=== PATIENT | male | born 1940 | race Caucasian/White ===

== ENCOUNTER 2018-09-28 11:21 | Emergency (ER) | payer MEDICARE, SELFPAY ==
[2018-09-28] VITALS (50 sets, daily range): BP systolic 83–161; BP diastolic 58–84; PULSE 58–71; RESP 7–26; TEMP 36.6; O2SAT 87–97
--- NOTE | 2018-09-28 11:41 | DI.RAD_ITS ---
SYMPTOM/DIAGNOSIS: CP, LOW BP, R/O WIDENED MEDIASTINUM PORTABLE CHEST: Comparison is made with 16 November 2017. The exam is limited by suboptimal pulmonary inflation. There are increased patchy densities in both lower lobes suspicious for pneumonia. There is no evidence of a widened mediastinum or cardiomegaly. There is no evidence of effusion or pulmonary edema. IMPRESSION: Bibasilar densities suspicious for pneumonia.
--- NOTE | 2018-09-28 11:42 | DI.CT_ITS ---
SYMPTOM/DIAGNOSIS: LT SIDED CHEST PAIN, ? DISSECTION PE CHEST CT: Comparison is made with 05/15/09. The exam was performed according to the pulmonary embolism protocol. The pulmonary arteries and aorta are well opacified with IV contrast. There is no evidence of aortic dissection or pulmonary emboli. There are no pleural or pericardial effusions. Evaluation of the lungs is limited due to respiratory motion and suboptimal inflation. Dependent changes are noted at the bases. There are underlying emphysematous and fibrotic changes, greatest in the upper lobes. There are no pleural or pericardial effusions. The visualized portions of the liver and spleen as well as pancreas and adrenals are unremarkable. A stone is noted in the gallbladder. There is no biliary dilatation or gallbladder wall thickening. There is no evidence of pneumothorax, spine or rib fracture. IMPRESSION: No evidence of pulmonary emboli or aortic dissection. There are underling emphysematous and fibrotic changes. Dependent changes are seen in the posterior portions of the lungs. No definite infiltrates are identified.
[2018-09-28] MEDS: Normal Saline 250 ML IV (11:45)
[2018-09-28 11:53] LABS: Abs Immature Grans 0.03 k/cumm (0.0-0.09); Absolute Basophil Count 0.08 k/cumm (0.0-0.2); Absolute Eosinophil Count 0.28 k/cumm (0.0-0.7); Absolute Lymphocyte Count 1.76 k/cumm (1.2-3.4); Absolute Monocyte Count 0.54 k/cumm (0.11-0.7); Absolute Neutrophil Count 5.84 k/cumm (1.2-6.7); Basophils % 0.9; Eosinophils % 3.3; HGB 14.6 g/dL (13.5-17.5); Immature Grans % 0.4; Lymphocytes % 20.6; Mean Corp. HGB Concentration 33.2 g/dL (32.0-36.0); Mean Corpuscular Hemoglobin 29.3 pg (27.0-33.0); Mean Corpuscular Volume 88.4 fL (80-95); Mean Platelet Volume 10.7 fL (8.0-11.0); Monocytes % 6.3; Neutrophils % 68.5; Platelet Count 148 x1000/uL (130-400); RBC 4.98 m/cumm (4.50-6.00); RBC Distribution Width 13.8 % (11.8-14.1); White Blood Cell Count 8.53 k/cumm (4.4-10.8)
--- NOTE | 2018-09-28 12:00 | ED.GENADUL_ITS ---
Discharge Plan Disposition Patient Disposition: HOME Condition: Improving Discharge Details Chief Complaint: Chest Pain Clinical Impression: Chest wall pain, Chronic cough, Current smoker Primary Care Provider: Jessica,Local ED Provider: Tg Michelle Home Meds and New Rx's Prescriptions: New amoxicillin-pot clavulanate [Augmentin] 875-125 mg tablet 1 tab PO BID 7 Days Qty: 14 RF: 0 Continued gabapentin 300 MG capsule 300 mg PO BID RF: 0 nitroglycerin [Nitrostat] 0.4 MG tablet, sublingual 0.4 mg PO PRN PRNRF: 0 metoprolol tartrate 25 MG tablet 25 mg PO BID RF: 0 Combivent Respimat 120 PUFF mist 1 puff Inhalation Q4H PRNRF: 0 cilostazol 100 MG tablet 100 mg PO BID RF: 0 acetaminophen [Tylenol Extra Strength] 500 MG tablet 1,000 mg PO Q6H PRNRF: 0 guaifenesin 600 MG tablet extended release 12hr 600 mg PO BID RF: 0 prednisone 20 MG tablet 60 mg PO DAILY 4 Days RF: 0 levofloxacin 750 MG tablet 750 mg PO DAILY 6 Days RF: 0 furosemide 20 MG tablet 20 mg PO DAILY Qty: 7 RF: 0 buspirone 5 mg Tablet 5 mg PO TID RF: 0 lisinopril 20 mg Tablet 20 mg PO DAILY RF: 0 clonazepam 1 mg Tablet 1 mg PO HS RF: 0 aspirin 81 mg Tablet,Chewable 81 mg PO DAILY RF: 0 albuterol sulfate 90 mcg/actuation Hfa Aerosol Inhaler 2 puff Inhalation PRNRF: 0 budesonide-formoterol 160-4.5 mcg/actuation Hfa Aerosol Inhaler 2 puff INHALATION BID RF: 0 amlodipine 10 mg Tablet 10 mg PO DAILY RF: 0 ranitidine HCl 300 mg Capsule 300 mg PO BID RF: 0 tiotropium bromide 2.5 mcg/actuation Mist 2 puff INHALATION DAILY RF: 0 fluoxetine 20 mg Capsule 20 mg PO DAILY RF: 0 Discharge Instructions Instructions: Acute Cough (ED), Chest Wall Pain (ED) Additional Instructions: If your cough does not improve or worsens, you can start the antibiotic. You will receive a call from care management regarding a follow up appointment with a primary care doctor and for referral for a stress test if your symptoms do not improve or worsen. Return immediately to the emergency department if you develop any worsening or new concerning symptoms. Discharge Data Discharge Date/Time-TO BE ENTERED AT DEPARTURE: 09/28/18 15:57 Discharge Physician: Tg Michelle Medical Decision Making 78-year-old male with a history of WI, hypertension, hyperlipidemia, diabetes, CVA, COPD who presents with intermittent sharp left-sided chest pain without radiation currently 11/20. EKG on arrival notes a rate of 63, sinus no acute ST findings. Patient has significant left-sided tenderness to palpation that was significantly tender even with laying the stethoscope on his chest. Patient states he was carrying a building pressure washer yesterday which is approximately 80 pounds. Patient states he carried it again today and states the pain is been worse since then. Pain appears musculoskeletal but considering patient's age and history, will do a cardiac work-up as well as CT chest to rule out dissection. He denies any complaint of tearing chest pain so doubt dissection. He has no DVT/PE risk factors so doubt PE. 1400 --labs and imaging reviewed. Normal white blood cell count. Magnesium 1.7, will replete. Troponin negative. BNP 231. Chest x-ray notes bilateral pneumonia. CTA chest negative for acute findings. In the setting of normal white blood cell count, no fever, and no pneumonia noted on CT chest, will discuss with patient whether he would like treatment for pneumonia but patient has a chronic cough due to his COPD and this likely is not an acute infectious process. Patient is requesting to go home. He is agreeable to stay for second troponin which we will obtain now. Patient informed of work-up and that this does not appear consistent with pneumonia at this time. He states he is prone to pneumonia so we will send home with a prescription for antibiotics if his cough does not improve or worsens. 1540 --second troponin negative. Repeat EKG notes a rate of 62, sinus and no acute ST findings. Patient is requesting to go home. Patient denies any pain at this time. Pt offered admission but declines. Will place patient on care management list to arrange for follow-up appointment with the primary care doctor. Discussed with patient that he should follow-up with his primary care doctor regarding referral for an outpatient stress test if his symptoms do not improve or worsen. Patient instructed to return immediately to the emergency department if he develops any worsening or new concerning symptoms. Medical Records Medical records reviewed: Yes I reviewed the patient's medical records. Imaging Data Radiologic Study: Radiologist's impression: PORTABLE CHEST: Comparison is made with 16 November 2017. The exam is limited by suboptimal pulmonary inflation. There are increased patchy densities in both lower lobes suspicious for pneumonia. There is no evidence of a widened mediastinum or cardiomegaly. There is no evidence of effusion or pulmonary edema. IMPRESSION: Bibasilar densities suspicious for pneumonia. ECG Data Attestation: I personally reviewed and interpreted this ECG (s) as follows: Interpretation: #1 -- Rate of 63, sinus, no acute ST elevation or depression. QTc 411. QRS 90. #2 -- Rate of 62, sinus, no acute ST elevation or depression. QTc 422. QRS 92. HPI General Mode of arrival: ambulatory . Date/Time Provider Initiated Documentation: 09/28/18 11:40 . Limitations to Documentation: no limitations . Information obtained by: patient . HPI Narrative: Patient is a 78-year-old male with history of CVA, WI, COPD, hypertension, high cholesterol diabetes who presents with left-sided chest pain that started at 5 AM this morning while laying in bed. States the pain is been intermittent, sharp, worse with movement. States he took 2 nitro and had some relief. Patient also admits to some nausea but denies any vomiting. Patient states he has chronic shortness of breath due to his COPD and admits to some shortness of breath this morning. He denies any radiation of pain. He denies any recent surgery, recent travel, leg pain or swelling. Patient states he is from [place] and moved here recently and does not have a physician. Patient states he is unsure of his medications. Patient states his dropped him off here and then drove downtown. Patient also admits to a cough with yellow sputum. Related Data Home Medications Medication Instructions Recorded Confirmed Combivent Respimat 1 puff INHALATION Q4H PRN 08/13/15 09/28/18 acetaminophen [Tylenol Extra 1,000 mg PO Q6H PRN 08/13/15 09/28/18 Strength] cilostazol 100 mg PO BID 08/13/15 09/16/17 gabapentin 300 mg PO BID 08/13/15 09/28/18 metoprolol tartrate 25 mg PO BID 08/13/15 09/28/18 nitroglycerin [Nitrostat] 0.4 mg PO PRN PRN 08/13/15 09/28/18 furosemide 20 mg PO DAILY #7 tab 09/16/17 09/28/18 guaifenesin 600 mg PO BID 09/16/17 09/16/17 levofloxacin 750 mg PO DAILY 6 Days tablet 09/16/17 09/28/18 prednisone 60 mg PO DAILY 4 Days tab 09/16/17 albuterol sulfate 2 puff INHALATION PRN 09/28/18 amlodipine 10 mg PO DAILY 09/28/18 09/28/18 amoxicillin-pot clavulanate 1 tab PO BID 7 Days #14 tab 09/28/18 [Augmentin] aspirin 81 mg PO DAILY 09/28/18 09/28/18 budesonide-formoterol 2 puff INHALATION BID 09/28/18 09/28/18 buspirone 5 mg PO TID 09/28/18 09/28/18 clonazepam 1 mg PO HS 09/28/18 09/28/18 fluoxetine 20 mg PO DAILY 09/28/18 09/28/18 lisinopril 20 mg PO DAILY 09/28/18 09/28/18 ranitidine HCl 300 mg PO BID 09/28/18 09/28/18 tiotropium bromide 2 puff INHALATION DAILY 09/28/18 09/28/18 Previous Rx's Medication Instructions Recorded furosemide 20 mg PO DAILY #7 tab 09/16/17 levofloxacin 750 mg PO DAILY 6 Days tablet 09/16/17 prednisone 60 mg PO DAILY 4 Days tab 09/16/17 amoxicillin-pot clavulanate 1 tab PO BID 7 Days #14 tab 09/28/18 [Augmentin] Allergies Allergy/AdvReac Type Severity Reaction Status Date / Time lansoprazole [From Prevacid] Allergy Unverified 09/16/17 05:11 metoprolol Allergy Unverified 09/16/17 05:12 omeprazole Allergy Unverified 09/16/17 05:12 trazodone Allergy Unverified 09/16/17 05:12 zolpidem Allergy Unverified 09/16/17 05:12 General Stated Complaint: Chest Pain STEFANI: 2 Review of Systems Review of Systems All systems reviewed & are unremarkable except as noted in HPI and below Constitutional Reports as per HPI, Denies chills and Denies fever(s) Eyes Denies blurry vision ENT Denies dizziness, Denies sore throat and Denies throat swelling Cardiovascular Denies chest pain and Denies dyspnea Respiratory Denies cough and Denies dyspnea Gastrointestinal Denies abdominal pain, Denies diarrhea and Denies vomiting Genitourinary Denies hematuria and Denies dysuria Musculoskeletal Denies back pain and Denies numbness Integumentary/Breasts Denies lesions and Denies rash Neurologic Denies dizziness, Denies focal weakness and Denies numbness Allergic/Immunologic Denies throat swelling PFSH Medical History Hx of hyperlipidemia (Acute) Asthma (Chronic) COPD (chronic obstructive pulmonary disease) (Chronic) CVA (cerebral vascular accident) (Chronic) HTN (hypertension) (Chronic) Myocardial infarction (Chronic) Surgical History Finger amputation, traumatic (Acute) History of knee replacement (Chronic) Social History Smoking/Tobacco Use Status: Current every day Tobacco Type: cigarettes Alcohol Intake: former Drug use: Never Substance use type: does not use Do you feel safe at home: Yes Do you feel safe in your relationship?: Yes Exam Const General: cooperative, healthy appearing and no acute distress HENMT Head: normal to inspection Face and sinus: normal facial exam Eyes General: appearance normal, both eyes and all related structures EOM: EOM intact bilaterally Neck Neck: normal visual inspection and No submandibular swelling Lymphatic: no lymphadenopathy noted Chest Chest: normal inspection of the chest and tenderness (significant L anterior chest) Resp Effort & Inspection: normal respiratory effort and able to speak in complete sentences Auscultation: clear to auscultation bilaterally Cardio Rate: regular rate Rhythm: regular rhythm GI Inspection: normal to inspection Palpation: soft, not firm, not rigid and nontender Auscultation: normal bowel sounds Skin General skin exam: no rashes or lesions noted Neuro General: alert, awake and oriented x3 Cognition: normal cognition Speech: speech normal Motor: muscle tone normal throughout Sensory Exam: no sensory deficits noted Extrem General: normal to inspection, full ROM, normal capillary refill, no calf tenderness bilaterally and no edema Psych Appearance: grossly normal Mental Status: mental status grossly normal Speech and Movement: speech and movement normal Affect: normal affect Course Vital Signs Temperature 97.9 F 09/28/18 11:26 Pulse 69 09/28/18 11:26 Respiratory Rate 20 09/28/18 11:26 Blood Pressure 143/74 H 09/28/18 11:26 Pulse Oximetry 94 L 09/28/18 11:26 Temperature 97.9 F 09/28/18 11:26 Temperature Source Temporal Artery Scan 09/28/18 11:26 Pulse 69 09/28/18 11:26 Respiratory Rate 18 09/28/18 11:47 Respiratory Effort Non-Labored 09/28/18 11:47 Respiratory Depth Normal 09/28/18 11:47 Respiratory Pattern Normal 09/28/18 11:47 Blood Pressure 95/61 L 09/28/18 11:42 Blood Pressure Position Sitting 09/28/18 11:26 Pulse Oximetry 94 L 09/28/18 11:26 Oxygen Delivery Method Room Air 09/28/18 11:26 Oxygen Flow Rate 0 09/28/18 11:26 Pain Level 6 09/28/18 11:42
[2018-09-28 12:11] LABS: ALT 26 U/L (12-78); AST 17 U/L (15-37); Albumin 3.9 g/dL (3.4-5.0); Alkaline Phosphatase 65 U/L (46-116); Anion Gap 12.8 mmol/L (3-11); BUN 18 mg/dL (7-18); Bilirubin, Total 0.8 mg/dL (0.2-1.0); CO2 25.2 mmol/L (21.0-32.0); CREATININE 1.61 mg/dL (0.70-1.30); Calcium 9.1 mg/dL (8.5-10.1); Chloride 101 mmol/L (98-107); Estimated GFR 41.61 (mL/min/1.73m2); Glucose 140 mg/dL (70-100); Potassium 4.4 mmol/L (3.5-5.1); Sodium 139 mmol/L (136-145)
[2018-09-28 12:12] LABS: Troponin I < 0.02 ng/mL (0.00-0.06)
[2018-09-28 12:17] LABS: Magnesium 1.7 mg/dL (1.8-2.4); NT-proBNP 231 pg/mL
[2018-09-28] MEDS: Omnipaque 350 MG/ML 100 ML BTL IJ (12:41)
[2018-09-28] MEDS: MAGNESIUM SULFATE 1 GM/100 ML BAG IVPB (14:01)
[2018-09-28 15:04] LABS: Troponin I < 0.02 ng/mL (0.00-0.06)
== END 2018-09-28 15:57 | disposition home or self-care (01) ==
PROVIDERS: Emergency Provider Physician Assistant
DX: R07.89 Other chest pain (principal); R05 Cough; I10 Essential (primary) hypertension; J44.9 Chronic obstructive pulmonary disease, unspecified; F17.210 Nicotine dependence, cigarettes, uncomplicated; Z86.73 Personal history of transient ischemic attack (TIA), and cerebral infarction without residual deficits
CPT/HCPCS: 36415; 71275; 80053; 93005; 96365; 96366; 99285; 71045; 83735; 83880; 84484; 85025; 93010; J3475; J3490

== ENCOUNTER → 2020-04-27 04:45 | Outpatient (CLI) | payer MEDICARE, SELFPAY ==
--- NOTE | 2020-04-27 07:30 | DI.RAD_ITS ---
EXAM: XR HIP PELVIS ADULT BL CLINICAL HISTORY: osteoarthritis, bilateral hip pain,m19.90. TECHNIQUE: 2D digital imaging was performed. COMPARISON: No exams were available for comparison FINDINGS: Chronic advanced degenerative disc disease noted lower visualized lumbar spine. Is no evidence of hip fracture or pelvic fracture. Both hips appear unremarkable. Sacroiliac joints unremarkable. IMPRESSION: No significant radiograph findings in the hips. Chronic degenerative disc disease. DATA REPOSITORY: RADIATION DOSE DELIVERED:
== END ==
PROVIDERS: PCP Nurse Practitioner Family; Visit Provider Nurse Practitioner Family
DX: M25.552 Pain in left hip (principal); M25.551 Pain in right hip; M47.816 Spondylosis without myelopathy or radiculopathy, lumbar region
CPT/HCPCS: 73521

== ENCOUNTER 2020-05-25 10:39 | Outpatient (CLI) | payer MEDICARE, SELFPAY ==
--- NOTE | 2020-05-25 10:30 | RT.EKG_ITS ---
APPROVED REPORT Exam: Resting ECG Patient Location: O HR:62 bpm ECG Measurements Heart Rate 62 AXIS GA 185 P 48 QRSd 77 QRS -32 QT 399 T 51 QTc 405 Conclusion Sinus rhythm...normal P axis, V-rate 60- 99 Left axis deviation...QRS axis (-30,-90)
[2020-05-25 13:35] LABS: ALT 32 U/L (16-63); AST 23 U/L (15-37); Albumin 4.2 g/dL (3.4-5.0); Alkaline Phosphatase 72 U/L (46-116); BUN 19 mg/dL (7-18); Bilirubin, Total 0.8 mg/dL (0.2-1.0); CREATININE 1.7 mg/dL (0.70-1.30); Calcium 8.8 mg/dL (8.5-10.1); Chloride 101 mmol/L (98-107); Cholesterol 192 mg/dL (<200); Estimated GFR 38.97 (mL/min/1.73m2); Glucose 109 mg/dL (74-106); HDL Cholesterol 26 mg/dL (40-60); Potassium 4.5 mmol/L (3.5-5.1); Sodium 139 mmol/L (136-145); Triglyceride 482 mg/dL (<150)
[2020-05-25 13:41] LABS: Hemoglobin A1C 7.7 % (<5.7)
[2020-05-25 14:05] LABS: LDL CHOLESTEROL 114 mg/dL (<100)
== END 2020-05-25 10:40 | disposition home or self-care (01) ==
LOC: DI.CM 10:40
PROVIDERS: PCP Nurse Practitioner Family; Visit Provider Nurse Practitioner Family
DX: R07.9 Chest pain, unspecified (principal); I25.10 Atherosclerotic heart disease of native coronary artery without angina pectoris; R73.01 Impaired fasting glucose
CPT/HCPCS: 80053; 80061; 83721; 83036

== ENCOUNTER 2020-06-07 01:05 | Outpatient (CLI) | payer MEDICARE, SELFPAY ==
--- NOTE | 2020-06-07 07:00 | DI.NM_ITS ---
APPROVED REPORT Exam: Pharmacologic Patient Location: Out-Patient Room/Bed: Stress Nurse: Stefania Escoto RN Ordering Provider:SON ROEREBECCA, Contact Number: [phone] BMI: 27.82 Baseline Rhythm: Sinus Bradycardia Indications: Known CAD. Medical History Medical History: Abdominal aortic aneurysm, CKD, multiple MIs, exertional angina, Depression, Anxiety , AFIB, COPD, Tobacco use, GERD, PAD, CVD, HTN, HLD, Osteoartritis, CVA, DJD, DM II, Diabetic neuropa thy. Cardiac Medications: Amlodipine, Aspirin, Lisinopril, Atorvastatin, Nitro, Metoprolol tartrate, Fluti robert fur., Albuterol sulfate, Tiotropium bromide, Combivent respimat. Allergies: Zolpidem, Trazadone, Omeprazole, Lansoprazole Cardiac Risk Factors: FHX of CAD, HTN, Hyperlipidemia, DM, Smoking (current), Asthma Previous Cardiac Procedures: PCI in 2008 Pretest Chest Pain Characteristics: None Exercise History: Sedentary Physical Disabilities: Hips, Legs Lung Sounds: Clear to auscultation Heart Sounds: Regular Stress Test Details Test: Exercise stress converted to pharmacologic stress due to failure to obtain a diagnostic stress test. Reason for pharmacologic stress test: physical limitation. Nuclear Acquisition: Rest Tc-99m/Stress Tc-99m 1 day Rest Isotope: Tc-99m Sestamibi. Dose: 10.5 Date: 06/07/2020 Injection Time: 0905 Stress Isotope: Tc-99m Sestamibi. Dose: 32.8 Date: 06/07/2020 Injection Time: 1045 HR Resting HR Supine: 54 bpm Max Heart Rate (APMHR): 140 bpm Resting HR Standin bpm Target HR (85% APMHR): 119 bpm Max HR Achieved: 73 bpm % of APMHR: 52 Recovery HR: 66 bpm BP Resting BP Supine: 134/76 mmHg Resting BP Standin/68 mmHg Max BP: 140/70 mmHg Recovery BP: 130/72 mmHg ECG Resting ECG: Sinus Bradycardia Ectopy: None. Stress ECG: Sinus Rhythm ST Change: No significant ST segment changes noted Arrhythmia: None. Recovery ECG: Sinus Rhythm Recovery ST Change: No significant ST segment changes noted Recovery Arrhythmia: None Clinical Reason for Termination: Dyspnea, pain w/ ambulation Stress Symptoms: Dyspnea, Leg Fatigue Exercise duration: 1 min35 sec Highest Stage Reached: Stage 1: 1.7 mph at 10% grade. Exercise capacity: 3.66 METs Rate Pressure Product: [id number] Stress ECG Conclusion 1. Resting electrocardiogram showed left anterior fascicular block. 2. Patient exercised briefly on the treadmill, workload 3.66 METS. Symptoms included leg fatigue and shortness of breath. Peak heart rate was 52% of predicted for age and the patient additionally had pharmacologic stress with regadenoson. Electrocardiographically the test was nondiagnostic due to in adequate heart rate Stress Test Summary STAGE Time (mins) Speed (mph) Grade (%) HR BP SYMPTOMS METS Supine 54 134/76 Standing 61 130/68 1 min post Lexiscan injection 68 140/70 SOB 3 min post Lexiscan injection 69 138/70 Symptoms resolved 6 min post Lexiscan injection 66 130/72 MPI Conclusion No significant myocardial ischemia Calculated ejection fraction 58%
[2020-06-07] MEDS: Regadenoson 0.4 MG/5 ML SYR IVP (10:52)
== END 2020-06-07 01:06 ==
LOC: DI 01:06
PROVIDERS: PCP Nurse Practitioner Family; Visit Provider Nurse Practitioner Family
DX: I25.10 Atherosclerotic heart disease of native coronary artery without angina pectoris (principal); I71.4 Abdominal aortic aneurysm, without rupture; I48.91 Unspecified atrial fibrillation; E11.9 Type 2 diabetes mellitus without complications; I10 Essential (primary) hypertension; E78.5 Hyperlipidemia, unspecified; I25.2 Old myocardial infarction; K21.9 Gastro-esophageal reflux disease without esophagitis
CPT/HCPCS: 78452; 93016; 93018; 93017; J2785

== ENCOUNTER → 2020-06-08 10:27 | Outpatient (BNVA) | payer MEDICARE, SELFPAY | PROVIDERS: PCP Nurse Practitioner Family; Referring Provider Nurse Practitioner Family; Visit Provider Internal Medicine Cardiovascular Disease | DX: I25.10 Atherosclerotic heart disease of native coronary artery without angina pectoris (principal); J44.9 Chronic obstructive pulmonary disease, unspecified; I73.9 Peripheral vascular disease, unspecified; I10 Essential (primary) hypertension; F17.210 Nicotine dependence, cigarettes, uncomplicated | CPT/HCPCS: 99203; 99215 ==

== ENCOUNTER 2020-11-10 08:08 | Emergency (ER) | payer MEDICARE, SELFPAY ==
[2020-11-10 08:20] VITALS: BP 147/67; PULSE 60; RESP 18; TEMP 36.6; O2SAT 95
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
--- NOTE | 2020-11-10 08:45 | DI.RAD_ITS ---
Exam(s) XR CHEST 2V PA LATERAL EXAM: XR CHEST 2V PA LATERAL CLINICAL HISTORY: cough, chronic SOB, r/o acute disease TECHNIQUE: COMPARISON: CR XR PORTABLE CHEST AP from 09/28/2018 FINDINGS: The heart is not enlarged. Upper lung zones are predominantly clear. There are streaky and patchy r adiodensities overlying the lower lung zones bilaterally, right greater than left. Comparison with p rior radiograph of September 28, 2018 shows question of new infiltrates. No pleural effusion seen. No pn eumothorax. IMPRESSION: Question acute on chronic pulmonary radiodensities as described above. Possibility of acute pneumoni tis is not excluded. Follow-up chest radiograph requested and if the findings do not resolve additio nal evaluation with chest CT would be recommended. RADIATION DOSE DELIVERED: Total DLP
[2020-11-10 09:00] LABS: Abs Immature Grans 0.03 10^3/uL (0.0-0.06); Absolute Eosinophil Count 0.43 10^3/uL (0.0-0.7); Absolute Lymphocyte Count 2.31 10^3/uL (1.2-3.4); Absolute Monocyte Count 0.82 10^3/uL (0.1-0.8); Absolute Neutrophil Count 6.86 10^3/uL (1.2-6.7); Basophils % 0.9; Eosinophils % 4.1; HCT 40.1 % (40.0-50.0); HGB 12.9 g/dL (13.5-17.5); Immature Grans % 0.3; Lymphocytes % 21.9; MCH 29.5 pg (27.0-33.0); MCHC 32.2 % (32.0-36.0); MCV 91.8 fL (80-95); MPV 10.7 fL (8.0-11.0); Monocytes % 7.8; Nucleated RBC 0 %; Platelet Count 140 10^3/uL (130-400); RBC 4.37 10^6/uL (4.36-5.78); RDW-SD 43.8 fL; WBC 10.55 10^3/uL (4.4-10.8)
[2020-11-10 09:20] LABS: ALT 19 U/L (16-63); AST 18 U/L (15-37); Albumin 3.8 g/dL (3.4-5.0); Alkaline Phosphatase 62 U/L (46-116); Anion Gap 11.3 mmol/L (3-11); BUN 33 mg/dL (7-18); Bilirubin, Total 0.7 mg/dL (0.2-1.0); CO2 23.7 mmol/L (21.0-32.0); CREATININE 2.4 mg/dL (0.70-1.30); Calcium 8.8 mg/dL (8.5-10.1); Chloride 104 mmol/L (98-107); Estimated GFR 26.11 (mL/min/1.73m2); Glucose 108 mg/dL (74-106); Magnesium 1.8 mg/dL (1.8-2.4); Potassium 4.7 mmol/L (3.5-5.1); Sodium 139 mmol/L (136-145); Total Protein 7.7 g/dL (6.4-8.2)
[2020-11-10 09:21] LABS: Troponin I < 0.05 ng/mL (<0.06)
[2020-11-10 09:22] LABS: NT-proBNP 202 pg/mL (<300)
--- NOTE | 2020-11-10 09:30 | NUR.NOTE ---
returned from xray, no cough noted, resp even and unlabored
[2020-11-10 10:06] VITALS: BP 122/57; PULSE 58; RESP 15; O2SAT 92
--- NOTE | 2020-11-10 10:42 | NUR.NOTE ---
ambulated with assist to BR and back to bed, unsteady gait:
--- NOTE | 2020-11-10 11:13 | DI.VRAD_ITS ---
PROCEDURE INFORMATION: Exam: XR Chest Exam date and time: 11/10/2020 8:48 AM Age: 80 years old Clinical indication: Other: Cough, chronic SOB, R/O acute disease TECHNIQUE: Imaging protocol: XR of the chest. Views: 2 views. COMPARISON: CR XR PORTABLE CHEST AP 09/28/2018 11:47 AM FINDINGS: Lungs: Lung conrad are hyperinflated, compatible with underlying emphysematous disease. Pleural spaces: No pleural effusion. No large pleural effusion. Heart/Mediastinum: Unremarkable. No cardiomegaly. Bones/joints: Unremarkable. Other findings: Mild multifocal patchy opacities present, uncertain whether these are acute or chronic. IMPRESSION: Chronic lung disease. Possible acute on chronic disease. Dictated and Authenticated by: Digna Mantilla MD. Ordering:BETTIE Mas MD
[2020-11-10 11:33] VITALS: BP 112/53; PULSE 64; RESP 16; O2SAT 94
[2020-11-10] MEDS: Amoxicillin 875/Clav. 125 TAB PO (11:33)
== END 2020-11-10 11:38 | disposition home or self-care (01) ==
PROVIDERS: Emergency Provider Physician Assistant; PCP Nurse Practitioner Family
DX: J44.0 Chronic obstructive pulmonary disease with (acute) lower respiratory infection (principal); J18.8 Other pneumonia, unspecified organism; J44.9 Chronic obstructive pulmonary disease, unspecified; R06.02 Shortness of breath; R05 Cough; F17.210 Nicotine dependence, cigarettes, uncomplicated
CPT/HCPCS: 36415; 80053; 99284; 71046; 83735; 83880; 84484; 85025; 99285

== ENCOUNTER → 2021-05-30 13:42 | Outpatient (BNVA) | payer OTHER, SELFPAY | PROVIDERS: PCP Nurse Practitioner Family; Referring Provider Nurse Practitioner Family; Visit Provider Internal Medicine Cardiovascular Disease | DX: I25.10 Atherosclerotic heart disease of native coronary artery without angina pectoris (principal); R07.9 Chest pain, unspecified; J44.9 Chronic obstructive pulmonary disease, unspecified; I73.9 Peripheral vascular disease, unspecified; I10 Essential (primary) hypertension | CPT/HCPCS: 99214; 99213 ==

== ENCOUNTER 2021-12-18 12:21 | Outpatient (REF) | payer OTHER, SELFPAY ==
[2021-12-18 22:39] LABS: Anion Gap 9.7 mmol/L (3-11); BUN 27 mg/dL (7-18); CO2 26.3 mmol/L (21.0-32.0); CREATININE 1.9 mg/dL (0.70-1.30); Calcium 8.3 mg/dL (8.5-10.1); Calculated LDL 41 mg/dL (<100); Chloride 102 mmol/L (98-107); Cholesterol 97 mg/dL (<200); Estimated GFR 34.79 (mL/min/1.73m2); Glucose 226 mg/dL (74-106); HDL Cholesterol 30 mg/dL (40-60); Sodium 138 mmol/L (136-145); Triglyceride 131 mg/dL (<150)
[2021-12-18 22:40] LABS: Hemoglobin A1C 7.4 % (<5.7)
== END 2021-12-18 12:22 | disposition home or self-care (01) ==
LOC: LBN 12:21
PROVIDERS: PCP Nurse Practitioner Family; Visit Provider Nurse Practitioner Family
DX: E11.9 Type 2 diabetes mellitus without complications (principal); I25.10 Atherosclerotic heart disease of native coronary artery without angina pectoris
CPT/HCPCS: 80048; 80061; 83036

== ENCOUNTER 2022-01-05 14:07 | Emergency (ER) | payer OTHER, SELFPAY ==
[2022-01-05 14:12] VITALS: BP 123/76; PULSE 82; RESP 18; TEMP 37; O2SAT 98
[2022-01-05 14:27] VITALS: BP 123/76; PULSE 79; RESP 17
[2022-01-05 14:28] VITALS: PULSE 78; RESP 18; O2SAT 95
[2022-01-05 14:30] VITALS: PULSE 75; RESP 29; O2SAT 96
--- NOTE | 2022-01-05 14:30 | DI.RAD_ITS ---
Exam(s) XR PORTABLE CHEST AP EXAM: XR PORTABLE CHEST AP CLINICAL HISTORY: shortness of breath TECHNIQUE: COMPARISON: CR,XR XR CHEST 2V PA LATERAL from 11/10/2020 FINDINGS: Portable AP chest at 1500 hours. Heart is not enlarged. There are changes of apparent pulmonary sca rring/fibrosis, unchanged from prior examination of 11/10/2020. No acute consolidation. No pleural effusion on this frontal film. IMPRESSION: No evidence of acute process. RADIATION DOSE DELIVERED: Total DLP
[2022-01-05 14:31] VITALS: BP 95/52; PULSE 74; RESP 28; O2SAT 96
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
[2022-01-05 15:19] LABS: Lactate 2.7 mmol/L (0.6-1.4)
[2022-01-05] MEDS: methylPREDNISolone SUCC 125 MG VIAL 80 MG IVP (15:20)
[2022-01-05] MEDS: Normal Saline 500 ML 1000 ML IV (15:42)
[2022-01-05 15:44] LABS: ALT 22 U/L (16-63); AST 17 U/L (15-37); Albumin 3.9 g/dL (3.4-5.0); Alkaline Phosphatase 62 U/L (46-116); Anion Gap 7.6 mmol/L (3-11); BUN 10 mg/dL (7-18); Bilirubin, Total 0.5 mg/dL (0.2-1.0); CO2 30.4 mmol/L (21.0-32.0); CREATININE 1.2 mg/dL (0.70-1.30); Calcium 9.3 mg/dL (8.5-10.1); Chloride 103 mmol/L (98-107); Estimated GFR 60.38 (mL/min/1.73m2); Glucose 67 mg/dL (74-106); Potassium 3.8 mmol/L (3.5-5.1); Sodium 141 mmol/L (136-145); Total Protein 6.9 g/dL (6.4-8.2)
[2022-01-05] MEDS: Doxycycline Hyclate 100 MG CAP (16:04)
[2022-01-05 16:58] LABS: Abs Immature Grans 0.03 10^3/uL (0.0-0.06); Absolute Basophil Count 0.07 10^3/uL (0.0-0.2); Absolute Eosinophil Count 0.08 10^3/uL (0.0-0.7); Absolute Lymphocyte Count 1.02 10^3/uL (1.2-3.4); Absolute Monocyte Count 0.74 10^3/uL (0.1-0.8); Absolute Neutrophil Count 3.79 10^3/uL (1.2-6.7); Basophils % 1.2; Eosinophils % 1.4; HCT 39.9 % (40.0-50.0); HGB 13.3 g/dL (13.5-17.5); Immature Grans % 0.5; Lymphocytes % 17.8; MCH 29.4 pg (27.0-33.0); MCHC 33.3 % (32.0-36.0); MCV 88 fL (80-95); MPV 11.2 fL (8.0-11.0); Monocytes % 12.9; Neutrophils % 66.2; RBC 4.53 10^6/uL (4.36-5.78); RDW 13.2 % (11.8-14.1); RDW-SD 42.7 fL; WBC 5.73 10^3/uL (4.4-10.8)
[2022-01-05 17:00] LABS: Platelet Count 97 10^3/uL (130-400)
[2022-01-05 17:13] LABS: NT-proBNP 566 pg/mL (<300); Troponin I < 50 ng/L (<or=60)
== END 2022-01-05 16:13 | disposition left against medical advice (07) ==
PROVIDERS: Emergency Provider Physician Assistant; PCP Nurse Practitioner Family
DX: J18.9 Pneumonia, unspecified organism (principal); R06.82 Tachypnea, not elsewhere classified; I25.10 Atherosclerotic heart disease of native coronary artery without angina pectoris; E11.22 Type 2 diabetes mellitus with diabetic chronic kidney disease; N18.9 Chronic kidney disease, unspecified; J44.9 Chronic obstructive pulmonary disease, unspecified; F17.210 Nicotine dependence, cigarettes, uncomplicated; Z79.82 Long term (current) use of aspirin; Z79.51 Long term (current) use of inhaled steroids
CPT/HCPCS: 36415; 80053; 87040; 87637; 96374; 99284; 71045; 83605; 83880; 84484; 85025; J2930

== ENCOUNTER 2022-01-16 13:19 | Emergency (ER) | payer OTHER, SELFPAY ==
[2022-01-16] VITALS (44 sets, daily range): BP systolic 96–135; BP diastolic 41–60; PULSE 63–88; RESP 10–29; TEMP 36.4–36.7; O2SAT 88–98
--- NOTE | 2022-01-16 13:15 | RT.EKG_ITS ---
APPROVED REPORT Exam: Resting ECG Reason for Exam: dyspnea Patient Location: E HR:68 bpm ECG Measurements Heart Rate 68 AXIS RI 160 P -8 QRSd 81 QRS 3 QT 403 T 60 QTc 428 Conclusion Sinus rhythm...normal P axis, V-rate 60- 99
--- NOTE | 2022-01-16 13:30 | DI.RAD_ITS ---
Exam(s) XR PORTABLE CHEST AP EXAM: XR PORTABLE CHEST AP CLINICAL HISTORY: sob, cough TECHNIQUE: COMPARISON: CR XR PORTABLE CHEST AP from 01/05/2022 FINDINGS: Heart is not enlarged. Note is again made of changes of pulmonary fibrosis/scarring, no gross interv al change appearance comparison with prior examination of January 05. No gross pleural effusion on this frontal film. IMPRESSION: No evidence of acute change. RADIATION DOSE DELIVERED: Total DLP
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
[2022-01-16 14:22] LABS: Lactate 1.4 mmol/L (0.6-1.4)
[2022-01-16 14:26] LABS: Abs Immature Grans 0.11 10^3/uL (0.0-0.06); Absolute Basophil Count 0.04 10^3/uL (0.0-0.2); Absolute Eosinophil Count 0.15 10^3/uL (0.0-0.7); Absolute Lymphocyte Count 1.64 10^3/uL (1.2-3.4); Absolute Monocyte Count 0.92 10^3/uL (0.1-0.8); Basophils % 0.4; Eosinophils % 1.4; HGB 13.1 g/dL (13.5-17.5); Lymphocytes % 15.2; MCH 28.9 pg (27.0-33.0); MCHC 32.8 % (32.0-36.0); MCV 88 fL (80-95); MPV 10.9 fL (8.0-11.0); Monocytes % 8.5; Neutrophils % 73.5; Platelet Count 180 10^3/uL (130-400); RBC 4.54 10^6/uL (4.36-5.78); RDW 12.9 % (11.8-14.1); RDW-SD 41.7 fL; WBC 10.82 10^3/uL (4.4-10.8)
[2022-01-16] MEDS: methylPREDNISolone SUCC 125 MG VIAL IVP (14:26)
[2022-01-16] MEDS: Normal Saline Flush 10 ML SYR IVP (14:26)
[2022-01-16 14:30] LABS: Influenza A PCR Negative (Negative); Influenza B PCR Negative (Negative); RSV PCR Negative (Negative)
[2022-01-16 14:32] LABS: COVID-19 PCR Positive (Negative)
[2022-01-16 14:32] LABS: Absolute Neutrophil Count 7.95 10^3/uL (1.2-6.7)
[2022-01-16] MEDS: Albuterol/Ipratropium 3 ML UPD VIAL UPD (14:34)
[2022-01-16 14:48] LABS: ALT 18 U/L (16-63); AST 10 U/L (15-37); Albumin 3.5 g/dL (3.4-5.0); Alkaline Phosphatase 61 U/L (46-116); Anion Gap 9.2 mmol/L (3-11); BUN 35 mg/dL (7-18); Bilirubin, Total 1.4 mg/dL (0.2-1.0); CO2 26.8 mmol/L (21.0-32.0); CREATININE 2.3 mg/dL (0.70-1.30); Calcium 8.9 mg/dL (8.5-10.1); Chloride 100 mmol/L (98-107); Estimated GFR 27.66 (mL/min/1.73m2); Glucose 128 mg/dL (74-106); Magnesium 1.7 mg/dL (1.8-2.4); NT-proBNP 225 pg/mL (<300); Potassium 4.4 mmol/L (3.5-5.1); Sodium 136 mmol/L (136-145); Total Protein 7.7 g/dL (6.4-8.2); Troponin I < 50 ng/L (<or=60)
[2022-01-16 15:34] LABS: Procalcitonin < 0.1 ng/mL
--- NOTE | 2022-01-16 15:46 | NUR.NOTE ---
pt provided with meal tray Nursing Note:
[2022-01-16 17:48] LABS: Troponin I < 50 ng/L (<or=60)
--- NOTE | 2022-01-16 18:10 | NUR.NOTE ---
Nursing Note: Patient's daughter Cecile called asking why her father was not being admitted. He has multiple health problems, now COVID, he is 81yrs old and lives [place] from [facility]. I told her that I was not the one to answer the question for her. I asked if she wanted to speak with the provider. She stated that he was an asshole to his other sister and that if she talked to him she would be that way to him. I offered the nursing boatbuilder supervisor and she said no also because she told the other sister she could not go against the providers decision. The call got cut off. She called back stating that I hung up on her. She again asked about admission for her father and stated that I did not know what it was like to live 45 [place] away. I offered everything again, that I did understand living 45 min away and then asked her name and number so that when the nurse went into the room to discharge the patient she could call her with her father in the room. She gave me her name: Cecile. THe information was given to the nurse on discharge.
== END 2022-01-16 18:34 | disposition home or self-care (01) ==
PROVIDERS: Emergency Provider Emergency Medicine; PCP Nurse Practitioner Family
DX: U07.1 COVID-19 (principal); I10 Essential (primary) hypertension; E11.9 Type 2 diabetes mellitus without complications; J44.9 Chronic obstructive pulmonary disease, unspecified; I25.10 Atherosclerotic heart disease of native coronary artery without angina pectoris; F17.210 Nicotine dependence, cigarettes, uncomplicated; Z79.82 Long term (current) use of aspirin; Z79.51 Long term (current) use of inhaled steroids; Z86.73 Personal history of transient ischemic attack (TIA), and cerebral infarction without residual deficits
CPT/HCPCS: 36415; 80053; 84145; 87040; 87637; 93005; 94640; 96365; 96366; 96372; 96375; 99284; 99285; Q0222; 71045; 83605; 83735; 83880; 84484; 85025; 93010; J2930; J7620

== ENCOUNTER → 2022-05-30 14:04 | Outpatient (BNVA) | payer OTHER, SELFPAY | PROVIDERS: PCP Nurse Practitioner Family; Referring Provider Nurse Practitioner Family; Visit Provider Internal Medicine Cardiovascular Disease | DX: I25.10 Atherosclerotic heart disease of native coronary artery without angina pectoris (principal); R07.9 Chest pain, unspecified; I73.9 Peripheral vascular disease, unspecified; I10 Essential (primary) hypertension; F17.210 Nicotine dependence, cigarettes, uncomplicated; J44.9 Chronic obstructive pulmonary disease, unspecified | CPT/HCPCS: 99213 ==

== ENCOUNTER 2022-06-05 08:38 | Outpatient (CLI) | payer OTHER, SELFPAY ==
[2022-06-05 13:00] LABS: BUN 31 mg/dL (7-18); Calcium 9.1 mg/dL (8.5-10.1); Chloride 103 mmol/L (98-107); Estimated GFR 32.71 (mL/min/1.73m2); Glucose 119 mg/dL (74-106); NT-proBNP 154 pg/mL (<300); Potassium 4.9 mmol/L (3.5-5.1); Sodium 137 mmol/L (136-145); TSH (W/Ref FT4) 1.66 uIU/mL (0.36-3.74)
[2022-06-06 10:33] LABS: PSA, Screening 0.8 ng/mL (<=6.5)
== END 2022-06-05 08:39 | disposition home or self-care (01) ==
LOC: LOS 08:38
PROVIDERS: PCP Nurse Practitioner Family; Referring Provider Nurse Practitioner Family; Visit Provider Nurse Practitioner Family
DX: E11.40 Type 2 diabetes mellitus with diabetic neuropathy, unspecified (principal); I50.9 Heart failure, unspecified; N40.0 Benign prostatic hyperplasia without lower urinary tract symptoms; Z12.5 Encounter for screening for malignant neoplasm of prostate
CPT/HCPCS: 36415; 80048; 84153; 83880; 84443

== ENCOUNTER 2022-06-13 02:21 | Outpatient (CLI) | payer OTHER, SELFPAY ==
[2022-06-13] MEDS: Inhaler, Assist Device 1 EACH MC (11:07)
[2022-06-13] MEDS: Albuterol HFA 18 GM 200 PUFF INH IH (11:07)
--- NOTE | 2022-06-13 16:15 | W.PFT ---
Date of service: 06/13/22 Time of Service: 10:05 Pulmonary Function Test Result Requesting Provider Maritza Tomlinson Indications: COPD Interpretation Spirometry: There is mild airflow limitation. There is a very significant bronchodilator response Lung Volumes: There is air trapping Diffusion Capacity: There is a moderately decreased diffusion Airway Pressure: Normal airways resistance Impression Mild airflow obstruction with a significant bronchodilator response and a decreased diffusion. This could represent COPD with emphysema or asthma-COPD overlap syndrome. Note: When compared to 02/26/09, the airflow obstruction is slightly improved, but the diffusion is slightly worse when corrected for aging. Clinical Correlation therefore is recommended.
== END 2022-06-13 02:22 | disposition home or self-care (01) ==
LOC: RT 02:22
PROVIDERS: PCP Nurse Practitioner Family; Visit Provider Nurse Practitioner Family
DX: J44.9 Chronic obstructive pulmonary disease, unspecified (principal)
CPT/HCPCS: 94060; 94726; 94729

== ENCOUNTER → 2022-06-17 09:40 | Outpatient (BNVA) | payer OTHER, SELFPAY | PROVIDERS: PCP Nurse Practitioner Family; Referring Provider Nurse Practitioner Family; Visit Provider Surgery | DX: R13.10 Dysphagia, unspecified (principal); I25.10 Atherosclerotic heart disease of native coronary artery without angina pectoris; J96.10 Chronic respiratory failure, unspecified whether with hypoxia or hypercapnia; J44.9 Chronic obstructive pulmonary disease, unspecified; E11.40 Type 2 diabetes mellitus with diabetic neuropathy, unspecified | CPT/HCPCS: 99215; 99243 ==

== ENCOUNTER 2022-07-21 00:32 | Outpatient (CLI) | payer OTHER, SELFPAY ==
--- NOTE | 2022-07-21 13:43 | DI.US_ITS ---
APPROVED REPORT EXAM: Comprehensive 2D, Doppler, and color-flow Echocardiogram Patient Location: [facility]-Patient [facility] [employer] Internship: Dominique Holcomb RDCS (AE) Indications: CAD, Fatigue, SOB, Chest pain, Smoker Other Information Study Quality: Adequate Conclusion Normal left ventricular wall thickness and chamber size. Ejection fraction is 55%. There are no seg mental wall motion abnormalities Normal right ventricular size and systolic function Both atria are normal in size There is no structural or hemodynamically significant valvular disease Estimated right ventricular systolic pressure is 35 mmHg Mildly dilated ascending aorta 3.53 cm Wall motion Left Ventricle The left ventricle is normal size. The left ventricular systolic function is normal. The left ventric ular ejection fraction is within the normal range. There is normal left ventricular wall thickness. T here is normal LV segmental wall motion. There is no ventricular septal defect visualized. LVEF is 55 %. Right Ventricle The right ventricle is normal size. The right ventricular systolic function is normal. The RVSP is 34 .6 mmHg. Atria The left atrium size is normal. The right atrium size is normal. The interatrial septum is intact wit h no evidence for an atrial septal defect. Aortic Valve The aortic valve is normal in structure. Aortic valve is trileaflet. There is no aortic valvular sten osis. No aortic regurgitation is present. Mitral Valve The mitral valve is normal in structure. No evidence of mitral valve stenosis. Trace mitral regurgita tion. Tricuspid Valve The tricuspid valve is normal in structure. There is no tricuspid valve stenosis. Mild tricuspid regu rgitation. Pulmonic Valve The pulmonary valve is normal in structure. There is no pulmonic valvular stenosis. Trace pulmonic re gurgitation. Great Vessels The aortic root is normal in size. The ascending aorta is mildly dilated. Aortic arch is not well vis ualized. IVC is normal in size and collapses >50% with inspiration. Pericardium There is no pericardial effusion. 2D Dimensions IVSD d PLAX 0.92 cm M: 0.6-1.2 LV Vol A2C d MOD 61.8 mL LVPW d PLAX 0.95 cm M: 0.6 - 1.2 LV Vol A4C d MOD 77.3 mL LVID d PLAX 4.17 cm M: 4.2 - 5.8 LA vol/ BSA A4C s A-L 17.8 mL/m2 LVDs 3.00 cm M: 2.5 - 4.0 LA Area A4C s MOD 14.63 cm2 Ao Root d 3.53 cm M: 3.1 - 3.7 LV EF A4C MOD 55.0 % RA Area A4C 11.30 cm2 LV EF A2C MOD 55.3 % RA Vol/ BSA A4C s A-L 14.1 mL/m2 LV EF Biplane MOD 54.8 % LV EF Teichholz 54.2 % SV 38.35 mL LVEF (Thompson's) 54.83 % M: 52 - 72 SV Index 19.59 mL/m2 LV Volume 52.83 mL M: 62 - 150 LV Volume Index 26.95 mL/m2 M: 34 - 74 LV Vol Biplane MOD 69.9 mL FS 27.75 % M-Mode TAPSE 1.53 cm (M/F) >1.7 LV Diastology MV E' medial 0.047 (>0.07 m/s) E/A Ratio 0.7 LV E/e MED 12.65 (<14) MV E Vmax 0.60 (0.4-1.3 m/s) MV E' lateral 0.074 (>0.1 m/s) MV A Vmax 0.85 (0.4-1.3 m/s) LV E/e LAT 8.00 (<14) MV E/A Ratio 0.69 MV E/E' medial 12.70 MV E/E' lateral 8.02 Aortic Valve LVOT Area 3.46 cm2 AoV Area Vmax 2.57 cm2 LVOT Vmax 0.70 m/s AoV Area/ BSA (Vmax) 1.32 cm2/m2 LVOT Mean Darwin. 0.46 m/s FAHAD Mean Darwin. 2.57 cm2 LVOT Peak Grad 2.0 mmHg FAHAD Mean Darwin. Index 1.31 cm2/m2 LVOT Mean Grad 1.0 mmHg LVOT VTI 0.155 m LVOT Diam s 2.05 cm AoV Vmax 0.95 m/s Velocity Ratio 0.74 AoV Mean Darwin. 0.62 m/s AoV Peak Grad 3.6 mmHg LVOT SV 53.69 mL AoV Mean Grad 1.8 mmHg AoV VTI 0.184 m AoV Area VTI 2.92 cm2 AoV Area/ BSA (VTI) 1.49 cm/m2 Mitral Valve MV DT 321 (160-240 msec) MV PHT 93 msec MV Area PHT 2.36 cm2 MV VTI 0.296 m MV Area VTI 1.81 (4.0-6.0 cm2) Pulmonary Valve PV Vmax 0.70 (0.5-1.5 m/s) RVOT Peak Gr. 0.54 mmHg PV Peak Grad 2.0 mmHg RVOT Mean Gr. 0.25 mmHg PV Mean Grad 0.8 mmHg RVOT VTI 0.063 m PV VTI 0.120 m RVOT Vmax 0.37 m/s Tricuspid Valve TR Peak Grad 31.6 mmHg TR Vmax 2.81 m/s RA Pressure 3.00 mmHg RVSP (TR) 34.6 mmHg
== END 2022-07-21 00:52 ==
PROVIDERS: PCP Nurse Practitioner Family; Visit Provider Nurse Practitioner Family
DX: I25.10 Atherosclerotic heart disease of native coronary artery without angina pectoris (principal)
CPT/HCPCS: 93306

== ENCOUNTER 2022-07-28 00:50 | Outpatient (CLI) | payer OTHER, SELFPAY ==
--- NOTE | 2022-07-28 07:15 | DI.RAD_ITS ---
Exam(s) RF BARIUM SWALLOW SINGLE EXAM: RF BARIUM SWALLOW SINGLE CLINICAL HISTORY: swallowing problems/hx smoking,dysphagia,r13.10 TECHNIQUE: 2D and realtime digital imaging was performed. CONTRAST MATERIAL: Oral barium Oral water soluble contrast was administered. COMPARISON: No exams were available for comparison FINDINGS: ESOPHAGRAM: Performed standing and recumbent MOTA. There was no aspiration evident. No hypertense cricopharyngeal bar. No Zenker's diverticulum. Ther e does not appear to be evidence of an obvious fixed lesion in the esophagus nor evidence of achalasi a. However, there are numerous tertiary waves evident. Towards the end of the study a small inconsistent sliding-type hiatal hernia was demonstrated. There did appear to be some circumferential narrowing of the esophagus just above the hiatal hernia. Ther e is no prominent reflux demonstrated. 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 There was no aspiration demonstrated. There is mild circumferential narrowing of the distal esophagus just above a small inconsistent hiata l hernia which was demonstrated towards the end of the study. Recommend upper endoscopy RADIATION DOSE DELIVERED: kasey Narayan=71.5 mGy
[2022-07-28] MEDS: Barium Sulfate 98% W/W 140 ML BTL PO (09:59)
[2022-07-28] MEDS: Barium Sulfate 60% W/V 355 ML BTL PO (09:59)
== END 2022-07-28 01:10 ==
LOC: DI 00:50
PROVIDERS: PCP Nurse Practitioner Family; Visit Provider Surgery
DX: E11.40 Type 2 diabetes mellitus with diabetic neuropathy, unspecified (principal); E78.5 Hyperlipidemia, unspecified; F17.210 Nicotine dependence, cigarettes, uncomplicated; F32.9 Major depressive disorder, single episode, unspecified; G47.00 Insomnia, unspecified; H91.93 Unspecified hearing loss, bilateral; I10 Essential (primary) hypertension; I25.10 Atherosclerotic heart disease of native coronary artery without angina pectoris; I63.9 Cerebral infarction, unspecified; I73.9 Peripheral vascular disease, unspecified; J44.9 Chronic obstructive pulmonary disease, unspecified; J96.10 Chronic respiratory failure, unspecified whether with hypoxia or hypercapnia; K21.9 Gastro-esophageal reflux disease without esophagitis; R13.10 Dysphagia, unspecified; R29.6 Repeated falls; R41.89 Other symptoms and signs involving cognitive functions and awareness
CPT/HCPCS: 74220; J3490

== ENCOUNTER 2022-08-17 14:18 | Emergency (ER) | payer OTHER, SELFPAY ==
[2022-08-17] VITALS (53 sets, daily range): BP systolic 115–181; BP diastolic 58–71; PULSE 70–71; RESP 10–29; TEMP 36.2; O2SAT 95–99
--- NOTE | 2022-08-17 14:15 | RT.EKG_ITS ---
APPROVED REPORT Exam: Resting ECG Reason for Exam: chest pain Patient Location: E HR:64 bpm ECG Measurements Heart Rate 64 AXIS WV 174 P 46 QRSd 78 QRS 1 QT 409 T 54 QTc 423 Conclusion Sinus rhythm...normal P axis, V-rate 60- 99
--- NOTE | 2022-08-17 14:15 | DI.RAD_ITS ---
Exam(s) XR PORTABLE CHEST AP EXAM: XR PORTABLE CHEST AP CLINICAL HISTORY: CP, SOB. TECHNIQUE: 2D digital imaging was performed. COMPARISON: Chest x-ray 07/28/2022. FINDINGS: Single AP portable view. Heart size is upper normal. The mediastinum is not widened. Lungs are clear. No infiltrates nor obvious pleural effusions. IMPRESSION: No acute pulmonary findings on this single AP portable view of the chest. 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 DATA REPOSITORY: RADIATION DOSE DELIVERED:
[2022-08-17 14:39] LABS: Abs Immature Grans 0.09 10^3/uL (0.0-0.06); Absolute Eosinophil Count 0.31 10^3/uL (0.0-0.7); Absolute Lymphocyte Count 2.99 10^3/uL (1.2-3.4); Absolute Monocyte Count 0.81 10^3/uL (0.1-0.8); Basophils % 0.8; Eosinophils % 2.6; HCT 38.8 % (40.0-50.0); HGB 12.6 g/dL (13.5-17.5); Immature Grans % 0.7; Lymphocytes % 24.7; MCH 29.3 pg (27.0-33.0); MCHC 32.5 % (32.0-36.0); MCV 90 fL (80-95); MPV 10.4 fL (8.0-11.0); Monocytes % 6.7; Neutrophils % 64.5; Platelet Count 176 10^3/uL (130-400); RDW 13.6 % (11.8-14.1); RDW-SD 44.5 fL; WBC 12.09 10^3/uL (4.4-10.8)
--- NOTE | 2022-08-17 14:40 | DI.CT_ITS ---
Exam(s) CT CHEST/ABD/PEL WO EXAM: CT CHEST/ABD/PEL WO CLINICAL HISTORY: Sharp CP, tender abd, hx AAA. TECHNIQUE: Imaging Protocol: Axial computed tomography images with coronal and sagittal reformatted images were created and reviewed CONTRAST MATERIAL: Noncontrast Oral: / no COMPARISON: CT CT CHEST PE CTA from 09/28/2018 CR,RF RF BARIUM SWALLOW SINGLE from 07/28/2022 CR,XR XR PORTABLE CHEST AP from 08/17/2022 FINDINGS: CHEST: Exam is mildly limited by motion. Tracheobronchial tree: Patent where visualized. Pulmonary parenchyma: Emphysematous changes noted in the upper lobes. Dependent changes noted at the lower lobes. Evaluation significantly limited by respiratory motion. Pleura: No effusion or pneumothorax. Lymph nodes: Within normal limits. Aorta: Thoracic portion non-dilated. Heart: Normal size. Coronary artery calcifications present. Bones: Unremarkable for age. No lytic or blastic lesions.No compression fractures. Small hiatal hernia. ABDOMEN: Liver: Normal density. No measurable mass. Gallbladder and biliary tract: Cholelithiasis.. No biliary dilation. Pancreas: Normal density, no abnormal calcifications or inflammatory process. Spleen: Normal. Kidneys: Normal size, contour and axis. No radiodense stones or obstructive uropathy. No suspicious m asses seen. Adrenal glands: No masses seen. Aorta: Lower abdominal aortic aneurysm measuring 3.6 cm. Atherosclerotic changes. Lymph nodes: Within normal limits. Soft tissues: Unremarkable. PELVIS: Bladder: Mild bladder wall thickening and trabeculation. Bowel: Diverticulosis. No evidence of diverticulitis. No obstruction or bowel wall thickening. Peritoneal cavity: No ascites, collection or mesenteric inflammatory response. Bones: Degenerative disc changes. Reproductive organs: Prostate mildly enlarged. IMPRESSION: Limited evaluation of the lungs due to respiratory motion. Emphysematous changes. Basilar dependent changes. 3.6 centimeter abdominal aortic aneurysm RADIATION DOSE DELIVERED: 1,900.4mGy.cm Total DLP DATA REPOSITORY: All CT scans at this facility are submitted to the National Radiology Data Registry (NRDR) Dose Index Registry (DIR) with the [employer] (ACR). RADIATION OPTIMIZATION: All CT scans at this facility use at least one of these dose optimization te chniques: automated exposure control; mA and/or kV adjustment per patient size (includes targeted exa ms where dose is matched to clinical indication); or iterative reconstruction.
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
[2022-08-17] MEDS: Normal Saline 1,000 ML 1000 ML IV (14:52)
[2022-08-17 14:56] LABS: ALT 37 U/L (16-63); AST 21 U/L (15-37); Albumin 3.7 g/dL (3.4-5.0); Alkaline Phosphatase 66 U/L (46-116); Anion Gap 7.8 mmol/L (3-11); BUN 36 mg/dL (7-18); Bilirubin, Total 0.7 mg/dL (0.2-1.0); CO2 25.2 mmol/L (21.0-32.0); CREATININE 2.3 mg/dL (0.70-1.30); Calcium 8.7 mg/dL (8.5-10.1); Chloride 103 mmol/L (98-107); Estimated GFR 27.66 (mL/min/1.73m2); Glucose 157 mg/dL (74-106); Magnesium 1.2 mg/dL (1.8-2.4); NT-proBNP 221 pg/mL (<300); Potassium 4.7 mmol/L (3.5-5.1); Sodium 136 mmol/L (136-145); Total Protein 7.7 g/dL (6.4-8.2); Troponin I < 50 ng/L (<or=60)
--- NOTE | 2022-08-17 15:12 | DI.VRAD_ITS ---
PROCEDURE INFORMATION: Exam: XR Chest Exam date and time: 08/17/2022 2:49 PM Age: 81 years old Clinical indication: Other: Cp, SOB TECHNIQUE: Imaging protocol: Radiologic exam of the chest. Views: 1 view. COMPARISON: CR XR PORTABLE CHEST AP 01/16/2022 2:30 PM FINDINGS: Lungs: Previously seen ill-defined airspace opacities at the lung bases appear resolved. No definite acute abnormality presently seen in the lungs. Pleural spaces: Unremarkable. No pleural effusion. No pneumothorax. Heart/Mediastinum: Unremarkable. No cardiomegaly. Bones/joints: Unremarkable. IMPRESSION: No definite acute abnormality evident in the chest. Dictated and Authenticated by: Nita Quijano MD. Ordering:LAURYN Garduno MD
--- NOTE | 2022-08-17 15:58 | DI.VRAD_ITS ---
PROCEDURE INFORMATION: Exam: CT Chest Without Contrast; Diagnostic Exam date and time: 08/17/2022 3:21 PM Age: 81 years old Clinical indication: Other: Sharp cp, tender abd, HX aaa TECHNIQUE: Imaging protocol: Diagnostic computed tomography of the chest without contrast. Radiation optimization: All CT scans at this facility use at least one of these dose optimization techniques: automated exposure control; mA and/or kV adjustment per patient size (includes targeted exams where dose is matched to clinical indication); or iterative reconstruction. COMPARISON: CR XR PORTABLE CHEST AP 08/17/2022 2:49 PM FINDINGS: Lungs: There appears to be mild bronchial wall thickening, somewhat diffusely. There is mild underlying COPD. Pleural spaces: Unremarkable. No pneumothorax. No pleural effusion. Heart: Unremarkable. No cardiomegaly. No pericardial effusion. Coronary arteries: Coronary artery calcifications/stents identified. Lymph nodes: Unremarkable. No enlarged lymph nodes. Vasculature: Moderate atherosclerotic change present in the vasculature. Diaphragm: Small hiatal hernia. Bones/joints: Unremarkable. No acute fracture. Soft tissues: Unremarkable. Other findings: Respiratory motion noted. IMPRESSION: Mild bronchitis changes. PROCEDURE INFORMATION: Exam: CT Abdomen And Pelvis Without Contrast Exam date and time: 08/17/2022 3:21 PM Age: 81 years old Clinical indication: Other: Sharp cp, tender abd, HX aaa TECHNIQUE: Imaging protocol: Computed tomography of the abdomen and pelvis without contrast. Radiation optimization: All CT scans at this facility use at least one of these dose optimization techniques: automated exposure control; mA and/or kV adjustment per patient size (includes targeted exams where dose is matched to clinical indication); or iterative reconstruction. COMPARISON: CR XR HIP PELVIS ADULT BL 04/27/2020 10:16 AM FINDINGS: Liver: Normal. No mass. Gallbladder and bile ducts: Gallstone. Pancreas: Normal. No ductal dilation. Spleen: Normal. No splenomegaly. Adrenal glands: Normal. No mass. Kidneys and ureters: Normal. No hydronephrosis. Stomach and bowel: Diverticulosis without acute diverticulitis. Appendix: No evidence of appendicitis. Intraperitoneal space: Unremarkable. No free air. No significant fluid collection. Vasculature: There is an infrarenal abdominal aortic aneurysm measuring 3.6 cm. Lymph nodes: Unremarkable. No enlarged lymph nodes. Urinary bladder: Possible minimal bladder wall trabeculation. Reproductive: Prostate slightly enlarged, 4.9 cm. Bones/joints: Moderate lumbar spondylosis. Soft tissues: Unremarkable. Other findings: Respiratory motion slightly limits the exam. IMPRESSION: Aortic aneurysm, 3.6 cm. No evidence for acute abnormality. Dictated and Authenticated by: Nita Quijano MD. Ordering:LAURYN Garduno MD
[2022-08-17] MEDS: MAGNESIUM SULFATE 1 GM/100 ML BAG IVPB (16:12)
[2022-08-17 17:50] LABS: Troponin I < 50 ng/L (<or=60)
== END 2022-08-17 18:45 | disposition home or self-care (01) ==
PROVIDERS: Emergency Provider Emergency Medicine; PCP Nurse Practitioner Family
DX: R07.9 Chest pain, unspecified (principal); R06.02 Shortness of breath; R10.819 Abdominal tenderness, unspecified site; E83.42 Hypomagnesemia
CPT/HCPCS: 36415; 71250; 80053; 93005; 96361; 96365; 99285; 71045; 74176; 83735; 83880; 84484; 85025; 93010; 99284; J3475

== ENCOUNTER 2022-08-22 11:18 | Outpatient (CLI) | payer OTHER, SELFPAY ==
[2022-08-22 12:52] LABS: Abs Immature Grans 0.05 10^3/uL (0.0-0.06); Absolute Eosinophil Count 0.35 10^3/uL (0.0-0.7); Basophils % 1.1; HCT 38.2 % (40.0-50.0); HGB 12.6 g/dL (13.5-17.5); Immature Grans % 0.6; Lymphocytes % 21.6; MCH 29.6 pg (27.0-33.0); MCV 90 fL (80-95); MPV 11.1 fL (8.0-11.0); Monocytes % 6.8; Neutrophils % 65.9; Platelet Count 163 10^3/uL (130-400); RBC 4.26 10^6/uL (4.36-5.78); RDW 13.7 % (11.8-14.1)
[2022-08-22 13:10] LABS: Hemoglobin A1C 8.1 % (<5.7)
[2022-08-22 13:28] LABS: Ferritin 192 ng/mL (26-388); Magnesium 1.4 mg/dL (1.8-2.4); Vitamin B12 519 pg/mL (193-986)
== END 2022-08-22 11:19 | disposition home or self-care (01) ==
LOC: LOS 11:19
PROVIDERS: PCP Nurse Practitioner Family; Referring Provider Nurse Practitioner Family; Visit Provider Nurse Practitioner Family
DX: D64.9 Anemia, unspecified (principal); R07.9 Chest pain, unspecified; E11.40 Type 2 diabetes mellitus with diabetic neuropathy, unspecified; J44.9 Chronic obstructive pulmonary disease, unspecified; R26.89 Other abnormalities of gait and mobility
CPT/HCPCS: 36415; 82607; 82728; 83036; 83735; 85025

== ENCOUNTER 2022-09-09 03:53 | Outpatient (CLI) | payer OTHER, SELFPAY | END 2022-09-09 03:54 | disposition home or self-care (01) | LOC: LOS 03:53 | PROVIDERS: PCP Nurse Practitioner Family; Visit Provider Nurse Practitioner Family | DX: E83.42 Hypomagnesemia (principal) | CPT/HCPCS: 36415; 83735 ==

== ENCOUNTER 2022-12-29 14:55 | Emergency (ER) | payer MEDICARE, SELFPAY ==
[2022-12-29] VITALS (86 sets, daily range): BP systolic 100–184; BP diastolic 49–84; PULSE 58–72; RESP 13–30; TEMP 36.4; O2SAT 92–99
--- NOTE | 2022-12-29 14:45 | RT.EKG_ITS ---
APPROVED REPORT Exam: Resting ECG Reason for Exam: sob wheezing Patient Location: E HR:68 bpm ECG Measurements Heart Rate 68 AXIS FL 154 P 6 QRSd 86 QRS -9 QT 410 T 44 QTc 436 Conclusion Sinus rhythm...normal P axis, V-rate 60- 99
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
--- NOTE | 2022-12-29 15:15 | DI.US_ITS ---
Exam(s) US EXTREMITY VENOUS BI EXAM: US EXTREMITY VENOUS BI CLINICAL HISTORY: Elevated creatinine leg tenderness bilaterally. TECHNIQUE: Bilateral lower extremity venous ultrasound performed using grayscale, color-flow, and sp ectral Doppler analysis. COMPARISON: No exams were available for comparison FINDINGS: The right common femoral, femoral and popliteal veins demonstrate normal compressibility, augmentatio n, and color Doppler. The posterior tibial veins are patent. The saphenofemoral junction is unremark able. There is no evidence of a Parada's cyst. The soft tissues are unremarkable. The left common femoral, femoral and popliteal veins demonstrate normal compressibility, augmentation , and color Doppler. The posterior tibial veins are patent. The saphenofemoral junction is unremarka ble. There is no evidence of a Parada's cyst. The soft tissues are unremarkable. IMPRESSION: 1. No evidence of a right lower extremity DVT. 2. No evidence of a left lower extremity DVT. 3. Findings were discussed with the emergency department at 4:23 p.m. on 12/29/2022. DATA REPOSITORY:
--- NOTE | 2022-12-29 15:15 | DI.CT_ITS ---
Exam(s) CT HEAD WO EXAM: CT HEAD WO CLINICAL HISTORY: History of falling head strike. TECHNIQUE: Imaging Protocol: Axial computed tomography images with coronal and sagittal reformatted images were created and reviewed COMPARISON: CT HEAD WITHOUT CONTRAST from 08/13/2015 FINDINGS: Ventricles and Extra axial spaces: Normal in size and morphology for the patient's age. Hemorrhage: None. Cerebral parenchyma: There are areas of decreased attenuation in the white matter consistent with sma ll vessel ischemic disease. Midline shift: None. Brainstem/Cerebellum: Normal. Calvarium: Normal. Visualized Paranasal sinuses/Mastoids: There is mucosal thickening and wall thickening of the right m axillary sinus consistent with chronic sinus disease. The remaining visualized paranasal sinuses and mastoid air cells are clear. Soft Tissues: Unremarkable. IMPRESSION: 1. No acute intracranial process. 2. Findings were discussed with the emergency department at 4:47 p.m. on 12/29/2022. RADIATION DOSE DELIVERED: 777.42mGy.cm Total DLP DATA REPOSITORY: All CT scans at this facility are submitted to the National Radiology Data Registry (NRDR) Dose Index Registry (DIR) with the [employer] (ACR). RADIATION OPTIMIZATION: All CT scans at this facility use at least one of these dose optimization te chniques: automated exposure control; mA and/or kV adjustment per patient size (includes targeted exa ms where dose is matched to clinical indication); or iterative reconstruction.
--- NOTE | 2022-12-29 15:21 | DI.RAD_ITS ---
Exam(s) XR CHEST 1V IN DI DEPT EXAM: XR CHEST 1V IN DI DEPT CLINICAL HISTORY: Shortness of breath TECHNIQUE: 2D digital imaging was performed of the chest. One image was obtained. An AP view was ob tained. COMPARISON: CR,XR XR PORTABLE CHEST AP from 08/17/2022 FINDINGS: MEDIASTINUM: Normal. HEART: Normal. PULMONARY VASCULATURE: Normal. LUNGS: Chronic appearing changes are seen in the lungs. No focal consolidating infiltrate is seen. PLEURAL SPACE: No pleural effusion or pneumothorax. BONE:Within normal limits for the patient's age. OTHER FINDINGS:Normal. IMPRESSION: No acute pulmonary findings. DATA REPOSITORY: RADIATION DOSE DELIVERED:
[2022-12-29 15:41] LABS: Abs Immature Grans 0.04 10^3/uL (0.0-0.06); Absolute Basophil Count 0.06 10^3/uL (0.0-0.2); Absolute Eosinophil Count 0.34 10^3/uL (0.0-0.7); Absolute Lymphocyte Count 1.47 10^3/uL (1.2-3.4); Absolute Monocyte Count 0.56 10^3/uL (0.1-0.8); Absolute Neutrophil Count 5.16 10^3/uL (1.2-6.7); Basophils % 0.8; Eosinophils % 4.5; HGB 12.4 g/dL (13.5-17.5); Immature Grans % 0.5; Lymphocytes % 19.3; MCH 29.4 pg (27.0-33.0); MCHC 32.6 % (32.0-36.0); MCV 90 fL (80-95); Monocytes % 7.3; Neutrophils % 67.6; Platelet Count 143 10^3/uL (130-400); RBC 4.22 10^6/uL (4.36-5.78); RDW 13.2 % (11.8-14.1); RDW-SD 43.3 fL; WBC 7.63 10^3/uL (4.4-10.8)
[2022-12-29] MEDS: ACETAMINOPHEN 1,000 MG/100 ML BTL 400 MG IVPB (15:48)
[2022-12-29 15:57] LABS: Anion Gap 10.1 mmol/L (3-11); BUN 34 mg/dL (7-18); CO2 23.9 mmol/L (21.0-32.0); CREATININE 2.3 mg/dL (0.70-1.30); Chloride 103 mmol/L (98-107); Estimated GFR 27.49 (mL/min/1.73m2); Glucose 144 mg/dL (74-106); Potassium 4.7 mmol/L (3.5-5.1); Sodium 137 mmol/L (136-145); Troponin I < 50 ng/L (<or=60)
[2022-12-29 16:15] LABS: COVID-19 PCR Negative (Negative); Influenza A PCR Negative (Negative); Influenza B PCR Negative (Negative); RSV PCR Negative (Negative)
[2022-12-29 16:17] LABS: Source NASOPHARYNX
[2022-12-29 18:46] LABS: Troponin I < 50 ng/L (<or=60)
--- NOTE | 2022-12-29 18:59 | NUR.NOTE ---
Referral faxed to Primary Care at [facility] to follow up this week regarding chest pain.
[2022-12-31 13:16] LABS: Lab Add On Test DONE
[2022-12-31 13:40] LABS: Hemoglobin A1C 7.9 % (<5.7)
== END 2022-12-29 19:35 | disposition left against medical advice (07) ==
PROVIDERS: Emergency Provider Emergency Medicine; PCP Nurse Practitioner Family
DX: I20.9 Angina pectoris, unspecified (principal); R51.9 Headache, unspecified; F17.210 Nicotine dependence, cigarettes, uncomplicated; E11.40 Type 2 diabetes mellitus with diabetic neuropathy, unspecified; M79.662 Pain in left lower leg; M79.661 Pain in right lower leg
CPT/HCPCS: 36415; 80048; 87637; 93005; 96365; 99285; 70450; 71045; 83036; 84484; 85025; 85379; 93010; 93970; 99284; J0131

== ENCOUNTER 2023-01-27 11:53 | Outpatient (CLI) | payer MEDICARE, SELFPAY ==
--- NOTE | 2023-01-27 11:30 | DI.RAD_ITS ---
Exam(s) XR SHOULDER LT COMPLETE 2+V EXAM: XR SHOULDER LT COMPLETE 2+V CLINICAL HISTORY: shoulder pain. TECHNIQUE: 2D digital imaging was performed of the left shoulder. Two images were obtained. AP, Gr ashey, Y-view and axillary views were obtained. COMPARISON: No exams were available for comparison FINDINGS: Examination is limited due to patient positioning. BONES: No acute fracture is present. No bony destructive lesion is seen. JOINTS: There does appear to be superior subluxation of the humeral head relative to the glenoid whic h may reflect chronic rotator cuff tear. Degenerative changes are seen at the acromioclavicular and glenohumeral joints. SOFT TISSUE: Normal. IMPRESSION: Degenerative changes of the shoulder. Findings suspicious for chronic rotator cuff tear. DATA REPOSITORY: RADIATION DOSE DELIVERED:
--- NOTE | 2023-01-27 11:30 | DI.RAD_ITS ---
Exam(s) XR SHOULDER RT COMPLETE 2+V EXAM: XR SHOULDER RT COMPLETE 2+V CLINICAL HISTORY: shoulder pain. TECHNIQUE: 2D digital imaging was performed of the right shoulder. Two images were obtained. Grash ey and axillary views were obtained. COMPARISON: No exams were available for comparison FINDINGS: BONES: No acute fracture is present. No bony destructive lesion is seen. JOINTS: No dislocation present. Degenerative changes are seen at the acromioclavicular joint. There is mild narrowing of the glenohumeral joint. SOFT TISSUE: The visualized lung conrad are unremarkable. IMPRESSION: Mild degenerative changes of the shoulder. DATA REPOSITORY: RADIATION DOSE DELIVERED:
== END 2023-01-27 11:54 | disposition home or self-care (01) ==
LOC: DIORS 11:53
PROVIDERS: PCP Nurse Practitioner Family; Referring Provider Nurse Practitioner Family; Visit Provider Student in an Organized Health Care Education/Training Program
DX: M25.511 Pain in right shoulder (principal); M19.011 Primary osteoarthritis, right shoulder
CPT/HCPCS: 73030

== ENCOUNTER → 2023-02-12 01:13 | Outpatient (CLI) | payer MEDICARE, SELFPAY ==
--- NOTE | 2023-02-12 07:45 | DI.CT_ITS ---
Exam(s) CT UPPER EXTREMITY LT WO EXAM: CT UPPER EXTREMITY LT WO CLINICAL HISTORY: L SHOULDER PAIN,ROTATOR CUFF ARTHROPATHY,M12.812. TECHNIQUE: Imaging Protocol: Axial computed tomography images with coronal and sagittal reformatted images were created and reviewed. COMPARISON: CR XR SHOULDER LT COMPLETE 2+V from 01/27/2023 FINDINGS: Bones: There is no evidence of an acute fracture or dislocation. [id number] degenerative lombardi ges are seen at the glenohumeral joint with joint space narrowing and osteophytes present. There als o moderate degenerative changes seen at the acromioclavicular joint. There is superior subluxation o f the humeral head suspicious for chronic rotator cuff tear. The bones are osteopenic. No celluliti c or osteomyelitic changes are identified. No lytic or sclerotic lesions are identified. Soft Tissues: There is moderately severe fatty atrophy of the supraspinatus, infraspinatus and subsca pularis muscles. The teres minor muscle is within normal limits. Centrilobular and paraseptal emphy sematous changes are present in the lungs. Dependent atelectatic changes are seen in the left lung b ase. Coronary artery calcifications are present. Atherosclerosis is present. IMPRESSION: 1. Osteoarthritis of the glenohumeral and acromioclavicular joints. 2. Superior subluxation of the humeral head suspicious for chronic rotator cuff tear. 3. Moderately severe fatty atrophy of the supraspinatus, infraspinatus and subscapularis muscles. RADIATION DOSE DELIVERED: Total DLP Total DLP DATA REPOSITORY: All CT scans at this facility are submitted to the National Radiology Data Registry (NRDR) Dose Index Registry (DIR) with the [employer] (ACR). RADIATION OPTIMIZATION: All CT scans at this facility use at least one of these dose optimization te chniques: automated exposure control; mA and/or kV adjustment per patient size (includes targeted exa ms where dose is matched to clinical indication); or iterative reconstruction.
== END ==
PROVIDERS: PCP Nurse Practitioner Family; Visit Provider Student in an Organized Health Care Education/Training Program
DX: M12.812 Other specific arthropathies, not elsewhere classified, left shoulder (principal)
CPT/HCPCS: 73200

== ENCOUNTER → 2023-02-17 13:49 | Outpatient (BNVA) | payer MEDICARE, SELFPAY | PROVIDERS: PCP Nurse Practitioner Family; Referring Provider Nurse Practitioner Family; Visit Provider Student in an Organized Health Care Education/Training Program | DX: M12.811 Other specific arthropathies, not elsewhere classified, right shoulder (principal); M12.812 Other specific arthropathies, not elsewhere classified, left shoulder | CPT/HCPCS: 99213 ==

== ENCOUNTER 2023-03-16 12:38 | Emergency (ER) | payer MEDICARE, SELFPAY ==
[2023-03-16] VITALS (11 sets, daily range): BP systolic 98–137; BP diastolic 57–62; PULSE 79–94; RESP 13–25; TEMP 36.6; O2SAT 93–95
--- NOTE | 2023-03-16 12:15 | RT.EKG_ITS ---
APPROVED REPORT Exam: Resting ECG Reason for Exam: chest pain Patient Location: E HR:91 bpm ECG Measurements Heart Rate 91 AXIS NY 214 P 52 QRSd 90 QRS -12 QT 363 T 62 QTc 448 Conclusion Sinus rhythm...normal P axis, V-rate 60- 99 Borderline prolonged NY interval...NY >207, V-rate 91-120 Low voltage, extremity leads...all extremity leads <0.5mV
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
[2023-03-16] MEDS: Normal Saline 500 ML IV (12:45)
[2023-03-16 12:48] LABS: Abs Immature Grans 0.03 10^3/uL (0.0-0.06); Absolute Basophil Count 0.05 10^3/uL (0.0-0.2); Absolute Eosinophil Count 0.19 10^3/uL (0.0-0.7); Absolute Lymphocyte Count 1.39 10^3/uL (1.2-3.4); Absolute Monocyte Count 0.51 10^3/uL (0.1-0.8); Absolute Neutrophil Count 4.31 10^3/uL (1.2-6.7); Basophils % 0.8; Eosinophils % 2.9; HCT 34.6 % (40.0-50.0); HGB 11.3 g/dL (13.5-17.5); Immature Grans % 0.5; Lymphocytes % 21.5; MCH 29.9 pg (27.0-33.0); MCHC 32.7 % (32.0-36.0); MCV 92 fL (80-95); MPV 10.6 fL (8.0-11.0); Monocytes % 7.9; Neutrophils % 66.4; Platelet Count 104 10^3/uL (130-400); RBC 3.78 10^6/uL (4.36-5.78); RDW 13.2 % (11.8-14.1); RDW-SD 44.5 fL; WBC 6.48 10^3/uL (4.4-10.8)
[2023-03-16 13:18] LABS: ALT 23 U/L (16-63); AST 15 U/L (15-37); Albumin 3.1 g/dL (3.4-5.0); Alkaline Phosphatase 55 U/L (46-116); Anion Gap 7.7 mmol/L (3-11); BUN 49 mg/dL (7-18); Bilirubin, Total 0.5 mg/dL (0.2-1.0); CO2 25.3 mmol/L (21.0-32.0); CREATININE 2.4 mg/dL (0.70-1.30); Calcium 7.9 mg/dL (8.5-10.1); Chloride 107 mmol/L (98-107); Estimated GFR 26.12 (mL/min/1.73m2); Glucose 94 mg/dL (74-106); Magnesium 1.4 mg/dL (1.8-2.4); NT-proBNP 94 pg/mL (<300); Potassium 4.8 mmol/L (3.5-5.1); Sodium 140 mmol/L (136-145); Total Protein 6.4 g/dL (6.4-8.2); Troponin I < 50 ng/L (<or=60)
[2023-03-16] MEDS: Omnipaque 350 MG/ML 100 ML BTL IJ (14:06)
[2023-03-16] MEDS: Normal Saline - Diluent 50 ML VIAL IJ (14:08)
[2023-03-16] MEDS: MAGNESIUM SULFATE 2 GM/50 ML BAG IVPB (14:18)
--- NOTE | 2023-03-16 14:22 | DI.CT_ITS ---
Exam(s) CT THORAX ABD/PEL CTA EXAM: CT THORAX ABD/PEL CTA CLINICAL HISTORY: chest and abdominal pain. TECHNIQUE: Imaging Protocol: Axial computed tomography images with coronal and sagittal reformatted images were created and reviewed CONTRAST MATERIAL: Intravenous: Omnipaque 350 Contrast volume:100 ml Oral: None COMPARISON: CT CT CHEST/ABD/PEL WO from 08/17/2022 CR XR CHEST 1V IN DI DEPT from 12/29/2022 FINDINGS: CHEST: AORTA: Diameter of the ascending thoracic aorta is normal, measuring 3.1 cm. No evidence of dissecti on. However, there is significant atherosclerotic narrowing at the origin of the left subclavian art nas off the aortic arch. The descending thoracic aorta is atherosclerotic and mildly prominent diameter but without intimal fl ap; diameter 2.8 cm. In the abdomen the abdominal aorta is atherosclerotic and there is a fusiform infrarenal abdominal ao rtic aneurysm which exhibits maximum diameter 3.8 cm which is at the level of the inferior mesenteric artery (which is patent). There is moderate stenosis at the origin of the celiac. No significant n o stenosis at the origin of the superior mesenteric artery. No evidence of embolus in the SMA. Ther e are 2 patent renal arteries on each side. There is significant atherosclerotic disease at the aort ic bifurcation but without a critical stenosis at this level. There is moderate focal stenosis in th e proximal 1 cm of the right common iliac artery. Just beyond this there is fusiform aneurysmal mild dilatation of the right common iliac artery exhibiting diameter of 1.4 cm.. Moderate atheroscleroti c disease throughout the left common iliac artery. Significant moderate atherosclerotic disease invo lving the bilateral external iliac arteries as well as the common femoral arteries bilaterally. Ther e is significant atherosclerotic disease involving the proximal SFA arteries bilaterally. LUNGS: COPD emphysematous findings in both lung conrad. Dependent markings in both lung bases noted. . No pleural effusions. MEDIASTINUM: There is no hilar nor mediastinal adenopathy. CARDIAC: Heart size is normal. There is no pericardial effusion. ABDOMEN: There is no ascites. No ischemic appearing bowel loops. No bowel obstruction or free air. LIVER: There are no focal hepatic lesions nor dilatation of intrahepatic ducts. GALLBLADDER/BILIARY: There is a calcified gallstone in the gallbladder neck region which measures 9 x 8 mm. No gallbladder wall edema seen. CBD is not dilated. No calculi seen in the CBD. PANCREAS: No evidence of pancreatic mass nor dilatation of the pancreatic duct. SPLEEN: Spleen is not enlarged. There are no intrasplenic lesions. Splenic and portal veins are mccallum nt. ADRENALS: There are no significant adrenal masses. KIDNEYS: Small benign cysts noted in the inferior pole left kidney. Does not require further imaging . No solid renal masses. No calculi. No hydronephrosis. No hydroureter. No calculi nor hydroneph rosis. No solid renal masses. ABDOMINAL AORTA: The abdominal aorta is not enlarged. LYMPH NODES: There is no retroperitoneal nor para-aortic adenopathy. No obvious mesenteric masses. ABDOMINAL WALL: No evidence of significant anterior abdominal wall hernia. GI: There is extensive sigmoid diverticulosis without evidence of obvious acute diverticulitis. Also no appendicitis. There is no evidence of bowel obstruction, free air, nor abscess. PELVIS: LYMPH NODES: There is no intrapelvic nor inguinal adenopathy. GI: No evidence of appendicitis.Extensive sigmoid diverticulosis but no evidence of acute diverticuli tis. URINARY BLADDER: No calculi nor masses evident REPRODUCTIVE: Enlarged prostate gland. Seminal vesicles unremarkable. OSSEOUS: No significant osseous lesions. No fractures IMPRESSION: 1. There is significant atherosclerotic disease in the thoracic and abdominal aorta. There is no flynn dence of aortic dissection. There is an abdominal aortic aneurysm with maximum diameter 3.8 cm. The re is also significant atherosclerotic disease in the iliac arteries as described above. Moderate st enosis at the origin of the celiac artery. No stenosis in the superior mesenteric artery appear 2. Extensive sigmoid diverticulosis. No evidence of acute diverticulitis. No evidence of appendicit is. 3. Other findings as above. Report called by myself to ER provider. RADIATION DOSE DELIVERED: Total DLP DATA REPOSITORY: All CT scans at this facility are submitted to the National Radiology Data Registry (NRDR) Dose Index Registry (DIR) with the [employer] (ACR). RADIATION OPTIMIZATION: All CT scans at this facility use at least one of these dose optimization te chniques: automated exposure control; mA and/or kV adjustment per patient size (includes targeted exa ms where dose is matched to clinical indication); or iterative reconstruction.
[2023-03-16 16:00] LABS: Troponin I < 50 ng/L (<or=60)
--- NOTE | 2023-03-16 16:39 | ED.PROG_ITS ---
Date of service: 03/16/23 Time of Service: 15:35 Medical Decision Making I reviewed patient's labs and second troponin is negative. Reassessed patient and patient denies any current chest pain or discomfort. Given that patient has significant cardiovascular risk factors including known coronary artery disease, peripheral vascular disease, stage IV CKD, diabetes, hypertension hyperlipidemia and COPD I do feel the patient would benefit from a observation stay with consideration of stress and echo when available. Also of note and discussed with patient was that this is his third emergency department visit within the last 6 months for chest pain with no admission or stress or echo testing also patient does report in the past he was told by systems requirements planner that he would need stenting but never carried through with any further follow-up. Discussed this with patient and significant other and patient is refusing admission at this time. Did inform patient in clear terms that he is at increased risk for cardiac event which he stated understanding of that risk but wanted his primary care provider to do the test on an outpatient basis if possible. Informed patient that we would do our best to attempt to arrange these test sooner than later but in the meantime if he had any return of chest pain or changed his mind on admission that he should represent to the emergency department. After discussion of diagnosis and plan of care patient has no further needs, questions, or concerns and states clear understanding to return to the emergency department for any worsening symptoms. This documentation was generated using [employer] dictation system, please disregard any oddities of phrase or misspellings. Lab Data Lab results reviewed: Yes I reviewed the patient's lab results. Sign Out Sign Out Data: Sign Out Comment: Patient arrived with acute chest pain, improved with asa and 1 nitro, has known AAA history- reports years ago possibly getting cath'd at another facility and was recommended stents but never followed up. 3hr trop pending. If negative reasonable for close outpatient follow-up with likely cardiology consult. Last updated by Conor Holt PA at 03/16/23 15:38 Discharge Plan Disposition Patient Disposition: Home Discharge Details Clinical Impression: CKD (chronic kidney disease) stage 4, GFR 15-29 ml/min, Chest pain Primary Care Provider: Maritza Tomlinson ED Provider: Jerry Camarillo Home Meds and New Rx's Prescriptions: Continued famotidine 20 mg tablet 20 mg PO BID Qty: 180 3RF aspirin 81 mg tablet,chewable 81 mg PO DAILY Qty: 90 3RF albuterol sulfate 90 mcg/actuation HFA aerosol inhaler 2 puff Inhalation Q6H PRN (Reason: shortness of breath or wheezing) Qty: 18 3RF atorvastatin 40 mg tablet 40 mg PO DAILY Qty: 90 3RF buspirone 10 mg tablet 10 mg PO BID Qty: 180 3RF fluoxetine 40 mg capsule 40 mg PO DAILY Qty: 90 3RF lisinopril 20 mg tablet 20 mg PO DAILY Qty: 90 3RF metoprolol tartrate 25 mg tablet 25 mg PO BID Qty: 180 3RF loperamide [Anti-Diarrheal (loperamide)] 2 mg capsule 2 mg PO Q6H PRN (DME) lancets [Tourauch Delica Plus Lancet] 33 gauge misc See Rx Instructions .ROUTE .MEDSUPPLY Qty: 200 4RF Rx Instructions: Check blood sugar twice a day (DME) OneTouch Ultra Blue Test Strip Strip See Rx Instructions .ROUTE .MEDSUPPLY Qty: 200 4RF Rx Instructions: Check blood sugar twice a day (DME) blood-glucose meter [[employer]uch Ultra2 Meter] Kit See Rx Instructions .ROUTE .MEDSUPPLY Qty: 1 2RF Rx Instructions: Check blood sugar twice a day nitroglycerin 0.4 mg tablet, sublingual 0.4 mg sublingual Q5M PRN (Reason: chest pain) Qty: 60 0RF Rx Instructions: Take 1 once, repeat every 5min for 3 doses if needed. Call 911 if no relief after 3rd semaglutide 7 mg tablet 7 mg PO DAILY Qty: 90 3RF wrzpucmbzop-ahuvnxcbs-eekakkrm 200-62.5-25 mcg blister with device 1 inh inhalation DAILY Qty: 60 3RF clonazepam 0.5 mg tablet 0.5 mg PO HS PRN (Reason: Insomnia) Qty: 28 2RF Rx Instructions: Take 1 tablet at bedtime as needed for sleep Discharge Instructions Instructions: Chest Pain (ED) Additional Instructions: As discussed you are at higher risk of cardiac event due to your risk factors. And spite of the emergency department workup not showing any obvious current findings you will still need further workup. If you change your mind and would like to reconsider admission to the emergency department or you have a return of chest pain please return to the emergency department for reassessment. Otherwise we will do our best to arrange the continued workup on an outpatient basis. Continue to take your meds as prescribed Referrals: Maritza Tomlinson NP [Primary Care Provider] - 2 days Discharge Data Discharge Date/Time-TO BE ENTERED AT DEPARTURE: 03/16/23 17:04
--- NOTE | 2023-03-16 16:44 | NUR.NOTE ---
Referral faxed to PCP for re-evaluation of chest pain, continued workup w/stress test, echo within the next 2 days. Nursing Note:
== END 2023-03-16 17:04 | disposition home or self-care (01) ==
PROVIDERS: Physician Assistant; Emergency Provider Nurse Practitioner Family; PCP Nurse Practitioner Family
DX: R07.9 Chest pain, unspecified (principal); R06.02 Shortness of breath; I71.40 Abdominal aortic aneurysm, without rupture, unspecified; E83.42 Hypomagnesemia; I12.9 Hypertensive chronic kidney disease with stage 1 through stage 4 chronic kidney disease, or unspecified chronic kidney disease; E11.22 Type 2 diabetes mellitus with diabetic chronic kidney disease; N18.4 Chronic kidney disease, stage 4 (severe); E11.40 Type 2 diabetes mellitus with diabetic neuropathy, unspecified; I25.10 Atherosclerotic heart disease of native coronary artery without angina pectoris; E78.5 Hyperlipidemia, unspecified; J44.9 Chronic obstructive pulmonary disease, unspecified; Z79.84 Long term (current) use of oral hypoglycemic drugs; Z79.82 Long term (current) use of aspirin; R94.31 Abnormal electrocardiogram [ECG] [EKG]; Z86.73 Personal history of transient ischemic attack (TIA), and cerebral infarction without residual deficits
CPT/HCPCS: 00123; 71275; 80053; 93005; 96361; 96365; 96366; 99285; 74174; 83735; 83880; 84484; 85025; 93010; 99284; J3490

== ENCOUNTER 2023-04-03 10:44 | Outpatient (CLI) | payer MEDICARE, SELFPAY ==
--- NOTE | 2023-04-03 10:30 | RT.EKG_ITS ---
APPROVED REPORT Exam: Resting ECG Reason for Exam: URI Patient Location: O HR:71 bpm ECG Measurements Heart Rate 71 AXIS OK 182 P 61 QRSd 88 QRS -14 QT 385 T 66 QTc 419 Conclusion Sinus rhythm...normal P axis, V-rate 50- 99 Low voltage, extremity leads...all extremity leads <0.5mV Abnormal R-wave progression, early transition...QRS area>0 in V2 I have reviewed and interpreted ECG and agree with software generated interpretation.
== END 2023-04-03 10:45 | disposition home or self-care (01) ==
LOC: DI.CM 10:45
PROVIDERS: PCP Nurse Practitioner Family; Visit Provider Nurse Practitioner Family
DX: R07.9 Chest pain, unspecified (principal)
CPT/HCPCS: 93010

== ENCOUNTER → 2023-04-03 12:26 | Outpatient (CLI) | payer MEDICARE, SELFPAY ==
--- NOTE | 2023-04-03 11:57 | DI.RAD_ITS ---
Exam(s) XR CHEST 2V PA LATERAL EXAM: XR CHEST 2V PA LATERAL CLINICAL HISTORY: R06.02 Shortness of breast, evaulate pathology TECHNIQUE: 2D digital imaging was performed of the chest. Two images were obtained. PA and lateral views were obtained. COMPARISON: CR,XR XR CHEST 2V PA LATERAL from 11/10/2020 CR XR CHEST 1V IN DI DEPT from 12/29/2022 FINDINGS: MEDIASTINUM: Normal. HEART: Normal. PULMONARY VASCULATURE: Normal. LUNGS: The lungs are hyperinflated. No focal infiltrates are seen. PLEURAL SPACE: No pleural effusion or pneumothorax. BONE:Within normal limits for the patient's age. OTHER FINDINGS:Normal. IMPRESSION: No acute pulmonary findings. DATA REPOSITORY: RADIATION DOSE DELIVERED:
== END ==
PROVIDERS: PCP Nurse Practitioner Family; Visit Provider Nurse Practitioner Family
DX: R06.02 Shortness of breath (principal)
CPT/HCPCS: 71046

== ENCOUNTER → 2023-04-14 00:04 | Outpatient (CLI) | payer MEDICARE, SELFPAY ==
--- NOTE | 2023-04-14 07:15 | DI.NM_ITS ---
APPROVED REPORT Exam: Pharmacologic Patient Location: Out-Patient Room/Bed: Stress Nurse: Grecia Montelongo RN Ordering Provider:SON AYERS, Contact Number: [phone] BMI: 21.96 Baseline Rhythm: Sinus Rhythm Indications: Chest pain Medical History Medical History: CVA, CKD, HTN, HLD, PVD, COPD, T2DM, AAA, GERD, frequent falls, OA, major depressive disorder Cardiac Medications: Aspirin, atorvastatin, lisinopril, nitro, metoprolol tartrate, ozempic, famotidi ne, buspirone Allergies: Lansoprazole, omeprazole, trazadone, zolpidem Cardiac Risk Factors: Family hx, HTN, HLD, PVD, CVD, diabetes, COPD, smoker Previous Cardiac Procedures: Cardiac cath 20 years ago per patient report Pretest Chest Pain Characteristics: None Exercise History: Sedentary Physical Disabilities: Back Lung Sounds: Clear to auscultation Heart Sounds: Regular, distant Stress Test Details Test: Pharmacologic stress testing performed using 0.4 mg of regadenoson per 5 mL given IV over 10 s econds. Reason for pharmacologic stress test: physical limitation. Nuclear Acquisition: Rest Tc-99m/Stress Tc-99m 1 day Rest Isotope: Tc-99m Sestamibi. Dose: 10.0 Date: 04/14/2023 Injection Time: 0930 Stress Isotope: Tc-99m Sestamibi. Dose: 30.0 Date: 04/14/2023 Injection Time: 1125 HR Resting HR Supine: 72 bpm Max Heart Rate (APMHR): 137 bpm Target HR (85% APMHR): 116 bpm Max HR Achieved: 96 bpm % of APMHR: 70 Recovery HR: 86 bpm BP Resting BP Supine: 134/62 mmHg Max BP: 134/62 mmHg Recovery BP: 100/50 mmHg ECG Resting ECG: Sinus Rhythm Ectopy: None Stress ECG: Sinus Rhythm ST Change: Nondiagnostic low heart rate Arrhythmia: None Recovery ECG: Sinus Rhythm Recovery ST Change: Nondiagnostic low heart rate Recovery Arrhythmia: None Clinical Stress Symptoms: None Angina Score: None Rate Pressure Product: [id number] Stress ECG Conclusion 1. 1. Normal clinical response 2. 2. Suboptimal heart rate response, but no abnormal ECG changes. 3. 3. Nuclear findings reported separately. Stress Test Summary STAGE HR BP SpO2 Symptoms NOTES Supine 72 134/62 1 min post Lexiscan injection 82 130/64 3 min post Lexiscan injection 91 108/56 6 min post Lexiscan injection 86 100/50 MPI Conclusion Normal myocardial perfusion. No ischemia or infarct. Normal LV function without wall motion abnormalities, EF 80%.
[2023-04-14] MEDS: Regadenoson 0.4 MG/5 ML SYR IVP (11:20)
== END ==
PROVIDERS: PCP Nurse Practitioner Family; Visit Provider Nurse Practitioner Family
DX: I25.10 Atherosclerotic heart disease of native coronary artery without angina pectoris (principal); R07.9 Chest pain, unspecified
CPT/HCPCS: 78452; 93017; J2785

== ENCOUNTER → 2023-04-15 10:36 | Outpatient (BNVA) | payer MEDICARE, SELFPAY | PROVIDERS: PCP Nurse Practitioner Family; Referring Provider Nurse Practitioner Family; Visit Provider Student in an Organized Health Care Education/Training Program | DX: M12.811 Other specific arthropathies, not elsewhere classified, right shoulder (principal); M12.812 Other specific arthropathies, not elsewhere classified, left shoulder | CPT/HCPCS: 20610; J1030 ==

== ENCOUNTER → 2023-05-14 12:42 | Outpatient (BNVA) | payer MEDICARE, SELFPAY | PROVIDERS: PCP Nurse Practitioner Family; Referring Provider Nurse Practitioner Family; Visit Provider Student in an Organized Health Care Education/Training Program | DX: J44.89 Other specified chronic obstructive pulmonary disease (principal); F17.210 Nicotine dependence, cigarettes, uncomplicated | CPT/HCPCS: 99214 ==

== ENCOUNTER 2023-07-22 11:25 | Outpatient (CLI) | payer MEDICARE, SELFPAY ==
[2023-07-22 12:36] LABS: Abs Immature Grans 0.06 10^3/uL (0.0-0.06); Absolute Basophil Count 0.12 10^3/uL (0.0-0.2); Absolute Eosinophil Count 0.39 10^3/uL (0.0-0.7); Absolute Neutrophil Count 7.27 10^3/uL (1.2-6.7); Basophils % 1.1; Eosinophils % 3.5; HCT 43.9 % (40.0-50.0); HGB 14.2 g/dL (13.5-17.5); Immature Grans % 0.5; Lymphocytes % 22.4; MCH 30.1 pg (27.0-33.0); MCHC 32.3 % (32.0-36.0); MCV 93 fL (80-95); MPV 10.8 fL (8.0-11.0); Monocytes % 7.2; Neutrophils % 65.3; Platelet Count 204 10^3/uL (130-400); RBC 4.72 10^6/uL (4.36-5.78); RDW 12.7 % (11.8-14.1); RDW-SD 43.3 fL; WBC 11.14 10^3/uL (4.4-10.8)
[2023-07-22 13:08] LABS: Lab Add On Test DONE
[2023-07-22 13:31] LABS: ALT 33 U/L (16-63); AST 22 U/L (15-37); Alkaline Phosphatase 69 U/L (46-116); Anion Gap 10.1 mmol/L (3-11); BUN 27 mg/dL (7-18); Bilirubin, Total 0.6 mg/dL (0.2-1.0); CO2 25.9 mmol/L (21.0-32.0); CREATININE 2.1 mg/dL (0.70-1.30); Calcium 9.5 mg/dL (8.5-10.1); Calculated LDL 62 mg/dL (<100); Chloride 107 mmol/L (98-107); Cholesterol 148 mg/dL (<200); Estimated GFR 30.66 (mL/min/1.73m2); Glucose 120 mg/dL (74-106); HDL Cholesterol 39 mg/dL (40-60); Potassium 5.1 mmol/L (3.5-5.1); Sodium 143 mmol/L (136-145); Total Protein 8.3 g/dL (6.4-8.2); Triglyceride 238 mg/dL (<150)
[2023-07-23 10:19] LABS: Hepatitis C Ab w Rflx HCV PCR Negative (Negative)
== END 2023-07-22 11:26 | disposition home or self-care (01) ==
LOC: LOS 11:25
PROVIDERS: PCP Nurse Practitioner Family; Referring Provider Nurse Practitioner Family; Visit Provider Nurse Practitioner Family
DX: Z00.00 Encounter for general adult medical examination without abnormal findings (principal); E11.40 Type 2 diabetes mellitus with diabetic neuropathy, unspecified
CPT/HCPCS: 36415; 80053; 80061; 86803; 83036; 85025

== ENCOUNTER 2024-04-02 01:40 | Emergency (ER) | payer MEDICARE, SELFPAY ==
[2024-04-02] VITALS (16 sets, daily range): BP systolic 132–178; BP diastolic 70–105; PULSE 68–77; RESP 14–26; TEMP 36.2–36.4; O2SAT 89–98
--- NOTE | 2024-04-02 01:45 | RT.EKG_ITS ---
APPROVED REPORT Exam: Resting ECG Reason for Exam: chest pain Patient Location: E HR:71 bpm ECG Measurements Heart Rate 71 AXIS NE 177 P 36 QRSd 88 QRS 22 QT 412 T 62 QTc 447 Conclusion Sinus rhythm...normal P axis, V-rate 60- 99
--- NOTE | 2024-04-02 02:00 | DI.RAD_ITS ---
Exam(s) XR PORTABLE CHEST AP EXAM: XR PORTABLE CHEST AP CLINICAL HISTORY: Chest pain TECHNIQUE: 2D digital imaging was performed of the chest. Two images were obtained. AP views were obtained. COMPARISON: CR XR CHEST 2V PA LATERAL from 04/03/2023 FINDINGS: MEDIASTINUM: Normal. HEART: Normal. PULMONARY VASCULATURE: Normal. LUNGS: No focal consolidating infiltrates. PLEURAL SPACE: No pleural effusion or pneumothorax. BONE:Within normal limits for the patient's age. OTHER FINDINGS:Normal. IMPRESSION: No acute pulmonary findings. DATA REPOSITORY: RADIATION DOSE DELIVERED:
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
[2024-04-02 02:21] LABS: Abs Immature Grans 0.06 10^3/uL (0.0-0.06); Absolute Basophil Count 0.09 10^3/uL (0.0-0.2); Absolute Eosinophil Count 0.27 10^3/uL (0.0-0.7); Absolute Lymphocyte Count 2.41 10^3/uL (1.2-3.4); Absolute Monocyte Count 0.68 10^3/uL (0.1-0.8); Basophils % 1.1 %; Eosinophils % 3.2 %; HCT 41.5 % (40.0-50.0); HGB 13.8 g/dL (13.5-17.5); Immature Grans % 0.7 %; Lymphocytes % 28.3 %; MCH 29.9 pg (27.0-33.0); MCHC 33.3 % (32.0-36.0); MCV 90 fL (80-95); MPV 10.4 fL (8.0-11.0); Neutrophils % 58.7 %; Platelet Count 203 10^3/uL (130-400); RBC 4.61 10^6/uL (4.36-5.78); RDW 12.9 % (11.8-14.1); RDW-SD 42.2 fL; WBC 8.51 10^3/uL (4.4-10.8)
[2024-04-02] MEDS: Albuterol/Ipratropium 3 ML UPD VIAL UPD ×2 (02:31→02:56)
[2024-04-02] MEDS: nitroGLYcerin 2% 1 INCH/1 GM PKT TP (02:32)
[2024-04-02 02:35] LABS: INR 1.1 (0.9-1.1); PTT Activated 32.5 sec (23.6-32.8)
[2024-04-02 02:41] LABS: Anion Gap 11.2 mmol/L (3-11); BUN 23 mg/dL (7-18); CO2 27.8 mmol/L (21.0-32.0); CREATININE 2.1 mg/dL (0.70-1.30); Calcium 8.9 mg/dL (8.5-10.1); Chloride 102 mmol/L (98-107); Estimated GFR 30.47 (mL/min/1.73m2); Glucose 198 mg/dL (74-106); NT-proBNP 233 pg/mL (<300); Potassium 4.3 mmol/L (3.5-5.1); Sodium 141 mmol/L (136-145); Troponin I 4 ng/L (<or=76)
[2024-04-02 02:55] LABS: COVID-19 PCR Negative (Negative); Influenza A PCR Negative (Negative); Influenza B PCR Negative (Negative); RSV PCR Negative (Negative)
[2024-04-02] MEDS: Dexamethasone 4 MG/ML VIAL IVP (02:56)
[2024-04-02 03:00] LABS: Source Nasopharynx
[2024-04-02 03:21] LABS: Troponin I 5 ng/L (<or=76)
--- NOTE | 2024-04-02 04:07 | DI.VRAD_ITS ---
PROCEDURE INFORMATION: Exam: XR Chest Exam date and time: 04/02/2024 2:28 AM Age: 83 years old Clinical indication: Other: Chest pain TECHNIQUE: Imaging protocol: Radiologic exam of the chest. Views: 1 view. COMPARISON: CR XR CHEST 2V PA LATERAL 04/03/2023 11:54 AM FINDINGS: Lungs: Lungs are clear allowing for apical lordotic projection. Pleural spaces: Unremarkable. No pleural effusion. No pneumothorax. Heart/Mediastinum: Unremarkable. No cardiomegaly. Bones/joints: Unremarkable. IMPRESSION: No acute findings. Dictated and Authenticated by: Chandana Ng MD. Ordering:JESS Alarcon MD
== END 2024-04-02 03:35 | disposition home or self-care (01) ==
PROVIDERS: Emergency Provider Emergency Medicine Emergency Medical Services; PCP Nurse Practitioner Family
DX: J44.1 Chronic obstructive pulmonary disease with (acute) exacerbation (principal); E11.22 Type 2 diabetes mellitus with diabetic chronic kidney disease; I12.9 Hypertensive chronic kidney disease with stage 1 through stage 4 chronic kidney disease, or unspecified chronic kidney disease; N18.4 Chronic kidney disease, stage 4 (severe); Z79.82 Long term (current) use of aspirin; Z79.899 Other long term (current) drug therapy; G20.A1 Parkinson's disease without dyskinesia, without mention of fluctuations; F17.210 Nicotine dependence, cigarettes, uncomplicated; E78.5 Hyperlipidemia, unspecified; K21.9 Gastro-esophageal reflux disease without esophagitis
CPT/HCPCS: 36415; 80048; 87040; 87637; 93005; 94640; 96374; 99285; 71045; 83880; 84484; 85025; 85610; 85730; 93010; J1100; J7620

== ENCOUNTER 2024-05-04 01:53 | Outpatient (CLI) | payer MEDICARE, SELFPAY ==
[2024-05-04 12:32] LABS: Hemoglobin A1C 12.2 % (<5.7)
[2024-05-04 12:38] LABS: Anion Gap 5.4 mmol/L (3-11); BUN 29 mg/dL (7-18); CO2 29.6 mmol/L (21.0-32.0); CREATININE 2.4 mg/dL (0.70-1.30); Calcium 9.3 mg/dL (8.5-10.1); Chloride 101 mmol/L (98-107); Estimated GFR 25.96 (mL/min/1.73m2); Glucose 450 mg/dL (74-106); Potassium 5.1 mmol/L (3.5-5.1); Sodium 136 mmol/L (136-145)
== END 2024-05-04 01:54 | disposition home or self-care (01) ==
LOC: LOS 01:53
PROVIDERS: PCP Nurse Practitioner Family; Visit Provider Nurse Practitioner Family
DX: E11.40 Type 2 diabetes mellitus with diabetic neuropathy, unspecified (principal); R68.89 Other general symptoms and signs; J02.9 Acute pharyngitis, unspecified; R05.9 Cough, unspecified
CPT/HCPCS: 36415; 80048; 83036

== ENCOUNTER 2024-05-04 14:15 | Outpatient (CLI) | payer MEDICARE, SELFPAY ==
--- NOTE | 2024-05-04 13:00 | DI.RAD_ITS ---
Exam(s) XR CHEST 2V PA LATERAL EXAM: XR CHEST 2V PA LATERAL CLINICAL HISTORY: evaluate pna, cough, R05.9. TECHNIQUE: 2D digital imaging was performed. COMPARISON: CR,XR XR PORTABLE CHEST AP from 04/02/2024 FINDINGS: 2 views: Heart size is normal. The mediastinum is not widened. Bilateral hyperinflation-COPD changes No infiltrates nor pleural effusions. No pulmonary edema. IMPRESSION: No acute pulmonary findings. DATA REPOSITORY: RADIATION DOSE DELIVERED:
== END 2024-05-04 14:35 ==
LOC: DI 14:19
PROVIDERS: PCP Nurse Practitioner Family; Visit Provider Nurse Practitioner Family
DX: R05.9 Cough, unspecified (principal)
CPT/HCPCS: 36415; 80048; 71046; 83036

== ENCOUNTER 2024-08-01 18:51 | Emergency (ER) | payer MEDICARE, SELFPAY ==
[2024-08-01] VITALS (18 sets, daily range): BP systolic 149–196; BP diastolic 65–90; PULSE 65–78; RESP 14–25; TEMP 35.9; O2SAT 95–99
--- NOTE | 2024-08-01 18:45 | RT.EKG_ITS ---
APPROVED REPORT Exam: Resting ECG Reason for Exam: SOB Patient Location: E HR:71 bpm ECG Measurements Heart Rate 71 AXIS UT 170 P 55 QRSd 76 QRS 27 QT 404 T 67 QTc 433 Conclusion Sinus rhythm. 71 normal axis no stemi
--- NOTE | 2024-08-01 19:00 | DI.RAD_ITS ---
Exam(s) XR PORTABLE CHEST AP EXAM: XR PORTABLE CHEST AP CLINICAL HISTORY: chest pain TECHNIQUE: 2D digital imaging was performed of the chest. One image was obtained. An AP view was ob tained. COMPARISON: CR XR CHEST 2V PA LATERAL from 04/03/2023 CR,XR XR PORTABLE CHEST AP from 04/02/2024 CR XR CHEST 2V PA LATERAL from 05/04/2024 FINDINGS: MEDIASTINUM: Normal. HEART: Normal. PULMONARY VASCULATURE: Normal. LUNGS: No focal consolidating infiltrates are seen. Mild linear stable opacities are seen in the eleonora g bases which are likely chronic. The lungs are hyperinflated suggesting underlying COPD. PLEURAL SPACE: No pleural effusion or pneumothorax. BONE:Within normal limits for the patient's age. OTHER FINDINGS:Normal. IMPRESSION: No focal consolidating infiltrates are seen. DATA REPOSITORY: RADIATION DOSE DELIVERED:
[2024-08-01 19:13] LABS: Lactate 1.4 mmol/L (<or=2.0)
[2024-08-01 19:14] LABS: Abs Immature Grans 0.05 10^3/uL (0.0-0.06); Absolute Basophil Count 0.09 10^3/uL (0.0-0.2); Absolute Lymphocyte Count 2.36 10^3/uL (1.2-3.4); Absolute Monocyte Count 0.58 10^3/uL (0.1-0.8); Basophils % 0.9 %; Eosinophils % 2.8 %; HCT 44.3 % (40.0-50.0); HGB 14.1 g/dL (13.5-17.5); Immature Grans % 0.5 %; Lymphocytes % 22.3 %; MCH 30.1 pg (27.0-33.0); MCHC 31.8 % (32.0-36.0); MCV 95 fL (80-95); MPV 10.6 fL (8.0-11.0); Monocytes % 5.5 %; Platelet Count 200 10^3/uL (130-400); RBC 4.68 10^6/uL (4.36-5.78); RDW-SD 44.7 fL; WBC 10.58 10^3/uL (4.4-10.8)
[2024-08-01] MEDS: Aspirin 81 MG CHEW 324 MG CH (19:16)
[2024-08-01 20:11] LABS: ALT 11 U/L (16-63); AST 19 U/L (15-37); Albumin 3.9 g/dL (3.4-5.0); Alkaline Phosphatase 73 U/L (46-116); Anion Gap 5.5 mmol/L (3-11); BUN 25 mg/dL (7-18); Bilirubin, Total 0.7 mg/dL (0.2-1.0); CO2 29.5 mmol/L (21.0-32.0); CREATININE 2.2 mg/dL (0.70-1.30); Calcium 9.2 mg/dL (8.5-10.1); Chloride 104 mmol/L (98-107); Estimated GFR 28.81 (mL/min/1.73m2); Glucose 137 mg/dL (74-106); Lipase 54 U/L (<78); Magnesium 1.7 mg/dL (1.8-2.4); NT-proBNP 221 pg/mL (<300); Potassium 4.4 mmol/L (3.5-5.1); Sodium 139 mmol/L (136-145); Total Protein 7.7 g/dL (6.4-8.2); Troponin I 5 ng/L (<or=76)
--- NOTE | 2024-08-01 20:14 | DI.VRAD_ITS ---
PROCEDURE INFORMATION: Exam: XR Chest Exam date and time: 08/01/2024 7:33 PM Age: 83 years old Clinical indication: Pain; Left-sided TECHNIQUE: Imaging protocol: Radiologic exam of the chest. Views: 1 view. COMPARISON: CR XR CHEST 2V PA LATERAL 05/04/2024 1:07 PM FINDINGS: Lungs: Lungs are hyperexpanded, compatible with chronic obstructive pulmonary physiologic changes. Mild bibasilar atelectasis and/or scarring. Pleural spaces: Normal. Heart/Mediastinum: Normal. Bones/joints: Degenerative changes of the acromioclavicular and glenohumeral joints. Humeral heads are high-riding in relation to the glenoid, compatible with chronic bilateral rotator cuff arthropathy. Multilevel thoracic spine degenerative disc space narrowing and osteophyte formation. IMPRESSION: No acute cardiopulmonary abnormality. Dictated and Authenticated by: Antoni Castillo MD. Orderin Kyle Quinn MD
[2024-08-01 20:33] LABS: Troponin I 6 ng/L (<or=76)
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
== END 2024-08-01 20:53 | disposition home or self-care (01) ==
LOC: ER 20:57
PROVIDERS: Emergency Provider Emergency Medicine; PCP Nurse Practitioner Family
DX: G47.00 Insomnia, unspecified (principal); R07.9 Chest pain, unspecified; I13.0 Hypertensive heart and chronic kidney disease with heart failure and stage 1 through stage 4 chronic kidney disease, or unspecified chronic kidney disease; N18.9 Chronic kidney disease, unspecified; I50.9 Heart failure, unspecified; G20.A1 Parkinson's disease without dyskinesia, without mention of fluctuations; F02.80 Dementia in other diseases classified elsewhere, unspecified severity, without behavioral disturbance, psychotic disturbance, mood disturbance, and anxiety; F17.210 Nicotine dependence, cigarettes, uncomplicated; Z79.82 Long term (current) use of aspirin; Z79.4 Long term (current) use of insulin; Z79.85 Long-term (current) use of injectable non-insulin antidiabetic drugs
CPT/HCPCS: 36415; 80053; 83690; 93005; 99285; 71045; 83605; 83735; 83880; 84484; 85025; 93010; 99284

== ENCOUNTER 2024-10-20 11:05 | Emergency (ER) | payer MEDICARE, SELFPAY ==
[2024-10-20 11:07] VITALS: BP 116/71; PULSE 74; RESP 24; TEMP 36.3; O2SAT 94
--- NOTE | 2024-10-20 12:03 | DI.CT_ITS ---
Exam(s) CT ABDOMEN PELVIS WO EXAM: CT ABDOMEN PELVIS WO CLINICAL HISTORY: right lower abd pain. TECHNIQUE: Imaging Protocol: Axial computed tomography images with coronal and sagittal reformatted images were created and reviewed CONTRAST MATERIAL: Intravenous: none Oral: None COMPARISON: CT CT THORAX ABD/PEL CTA from 03/16/2023 CT,NM,TMT NM MPI REST STRESS GRP from 04/14/2023 FINDINGS: VISUALIZED LUNG BASES: No nodules nor pleural effusions evident. ABDOMEN: There is no ascites. LIVER: There are no obvious focal hepatic lesions evident of this noninfused study. GALLBLADDER/BILIARY: There is a single calcified gallstone on the dependent wall the gallbladder which measures approximately 1 cm size. Although the gallbladder is blurred by motion artifact there does not appear to be obvious gallbladder wall edema nor pericholecystic fluid. The CBD is not dilated. PANCREAS: No evidence of pancreatic mass nor dilatation of the pancreatic duct. SPLEEN: Spleen is not enlarged. No obvious intrasplenic lesions. ADRENALS: There are no significant adrenal masses. KIDNEYS:No cysts evident. Addition defect on the anterior cortex of the left kidney has appearance of renal parenchymal tissue and unchanged from 03/16/2023. There are no calculi. No ominous solid renal masses. No hydronephrosis.. ABDOMINAL AORTA: Again noted is an infrarenal abdominal aortic aneurysm in the inferior aspect of the abdominal aorta which exhibits maximum external diameter of 3.8 cm, unchanged. This extends down to but not beyond the aortic bifurcation. The iliac arteries are calcified but not enlarged. LYMPH NODES: There is no retroperitoneal nor paraaortic adenopathy. ABDOMINAL WALL: No evidence of significant anterior abdominal wall nor inguinal hernia. GI: There is no evidence of bowel obstruction, free air, nor abscess. PELVIS: LYMPH NODES: There is no intrapelvic nor inguinal adenopathy. GI: No evidence of appendicitis.There is extensive sigmoid diverticulosis but no evidence of obvious acute diverticulitis. URINARY BLADDER: No calculi nor obvious masses evident REPRODUCTIVE: Enlarged prostate gland. Prostate with is 5.8 cm by 4.7 cm AP. There is no obturator adenopathy nor adenopathy elsewhere in the pelvis. OSSEOUS: No significant osseous lesions. No fractures. Multilevel chronic degenerative disc disease. IMPRESSION: 1. Compared to the prior CT scan of March 2023 the size of the infrarenal abdominal aortic aneurysm is not significantly increased, again measuring 3.8 cm maximum diameter. 2. There is extensive sigmoid diverticulosis again noted but no evidence of acute diverticulitis. Also no evidence of acute appendicitis. 3. Cholelithiasis again noted. No obvious acute cholecystitis. Report called by myself to ER physician 10/20/2024 at 2 p.m. RADIATION DOSE DELIVERED: 419.53mGy.cm Total DLP DATA REPOSITORY: All CT scans at this facility are submitted to the National Radiology Data Registry (NRDR) Dose Index Registry (DIR) with the [employer] (ACR). RADIATION OPTIMIZATION: All CT scans at this facility use at least one of these dose optimization techniques: automated exposure control; mA and/or kV adjustment per patient size (includes targeted exams where dose is matched to clinical indication); or iterative reconstruction.
[2024-10-20 12:42] VITALS: BP 116/71; PULSE 74; RESP 24; TEMP 36.3; O2SAT 94
[2024-10-20 12:43] VITALS: RESP 18; O2SAT 98
[2024-10-20 12:44] LABS: Abs Immature Grans 0.06 10^3/uL (0.0-0.06); HCT 41.6 % (40.0-50.0); HGB 13.6 g/dL (13.5-17.5); Immature Grans % 0.8 %; MCH 30.1 pg (27.0-33.0); MCHC 32.7 % (32.0-36.0); MCV 92 fL (80-95); MPV 10.3 fL (8.0-11.0); Platelet Count 143 10^3/uL (130-400); RBC 4.52 10^6/uL (4.36-5.78); RDW 14.0 % (11.8-14.1); RDW-SD 47.1 fL; WBC 7.99 10^3/uL (4.4-10.8)
[2024-10-20 13:15] LABS: ALT 9 U/L (16-63); AST 21 U/L (15-37); Albumin 3.6 g/dL (3.4-5.0); Alkaline Phosphatase 75 U/L (46-116); Anion Gap 8.2 mmol/L (3-11); BUN 29 mg/dL (7-18); Bilirubin, Total 0.6 mg/dL (0.2-1.0); CO2 25.8 mmol/L (21.0-32.0); Calcium 8.7 mg/dL (8.5-10.1); Chloride 105 mmol/L (98-107); Estimated GFR 39.02 (mL/min/1.73m2); Glucose 114 mg/dL (74-106); Magnesium 1.8 mg/dL (1.8-2.4); Potassium 4.6 mmol/L (3.5-5.1); Sodium 139 mmol/L (136-145); Total Protein 7.1 g/dL (6.4-8.2)
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
[2024-10-20] MEDS: ACETAMINOPHEN 500 MG/50 ML BAG 200 MG IVPB (13:34)
[2024-10-20 14:45] VITALS: BP 138/94; PULSE 72; RESP 16; O2SAT 97
== END 2024-10-20 14:47 | disposition home or self-care (01) ==
PROVIDERS: Emergency Provider Nurse Practitioner Family; PCP Nurse Practitioner Family
DX: R10.31 Right lower quadrant pain (principal); G20.C Parkinsonism, unspecified; J44.9 Chronic obstructive pulmonary disease, unspecified; E11.40 Type 2 diabetes mellitus with diabetic neuropathy, unspecified; E11.22 Type 2 diabetes mellitus with diabetic chronic kidney disease; I12.9 Hypertensive chronic kidney disease with stage 1 through stage 4 chronic kidney disease, or unspecified chronic kidney disease; N18.4 Chronic kidney disease, stage 4 (severe); I25.10 Atherosclerotic heart disease of native coronary artery without angina pectoris; E78.5 Hyperlipidemia, unspecified; F17.210 Nicotine dependence, cigarettes, uncomplicated; Z79.84 Long term (current) use of oral hypoglycemic drugs; Z79.4 Long term (current) use of insulin; Z79.82 Long term (current) use of aspirin; Z86.73 Personal history of transient ischemic attack (TIA), and cerebral infarction without residual deficits
CPT/HCPCS: 36415; 80053; 96374; 99285; 74176; 83735; 85025; 99284; J0131

== ENCOUNTER 2024-11-04 16:06 | Emergency (ER) | payer MEDICARE, SELFPAY ==
[2024-11-04 16:07] VITALS: BP 140/73; PULSE 73; RESP 14; TEMP 36.3; O2SAT 96
--- NOTE | 2024-11-04 16:30 | DI.RAD_ITS ---
Exam(s) XR HIP RT COMPLETE AP PELVIS EXAM: XR HIP RT COMPLETE AP PELVIS CLINICAL HISTORY: hip pain. TECHNIQUE: 2D digital imaging was performed of the right hip. Two images were obtained. AP pelvis and lateral right hip views were obtained. COMPARISON: CR XR HIP PELVIS ADULT BL from 04/27/[address] ABDOMEN PELVIS WO from 10/20/2024 FINDINGS: BONES: There is a cortical deformity seen in the femoral neck suspicious for a fracture. Please correlate with the patient's clinical history. A CT scan of the right hip should be considered for further evaluation. No bony destructive lesion is seen. JOINTS: No dislocation present. SOFT TISSUE: Atherosclerotic calcification is present. IMPRESSION: Question of a nondisplaced femoral neck fracture. CT scan of the right hip should be considered for further evaluation. DATA REPOSITORY: RADIATION DOSE DELIVERED:
[2024-11-04 16:57] LABS: Abs Immature Grans 0.06 10^3/uL (0.0-0.06); HCT 41.3 % (40.0-50.0); HGB 13.3 g/dL (13.5-17.5); Immature Grans % 0.7 %; MCH 29.8 pg (27.0-33.0); MCHC 32.2 % (32.0-36.0); MCV 93 fL (80-95); MPV 10.5 fL (8.0-11.0); Platelet Count 182 10^3/uL (130-400); RBC 4.46 10^6/uL (4.36-5.78); RDW 14.2 % (11.8-14.1); RDW-SD 47.8 fL; WBC 9.04 10^3/uL (4.4-10.8)
[2024-11-04 16:59] LABS: ESR 8 mm/hr (0-20)
[2024-11-04] MEDS: oxyCODONE 5 MG TAB PO (17:11)
[2024-11-04 17:22] LABS: ALT 17 U/L (16-63); AST 19 U/L (15-37); Albumin 3.8 g/dL (3.4-5.0); Alkaline Phosphatase 76 U/L (46-116); Anion Gap 8.4 mmol/L (3-11); BUN 25 mg/dL (7-18); Bilirubin, Total 0.8 mg/dL (0.2-1.0); CO2 26.6 mmol/L (21.0-32.0); Calcium 8.8 mg/dL (8.5-10.1); Chloride 104 mmol/L (98-107); Estimated GFR 34.14 (mL/min/1.73m2); Glucose 261 mg/dL (74-106); Potassium 4.8 mmol/L (3.5-5.1); Sodium 139 mmol/L (136-145); Total Protein 7.4 g/dL (6.4-8.2)
[2024-11-04 17:23] LABS: C-Reactive Protein < 0.50 mg/dL (<or=0.5)
--- NOTE | 2024-11-04 17:50 | DI.CT_ITS ---
Exam(s) CT LOWER EXTREMITY RT WO EXAM: CT LOWER EXTREMITY RT WO CLINICAL HISTORY: question of hip fracture on xray. TECHNIQUE: Imaging Protocol: Axial computed tomography images with coronal and sagittal reformatted images were created and reviewed. COMPARISON: CT CT CHEST/ABD/PEL WO from 08/17/[address] THORAX ABD/PEL CTA from 03/16/2023 FINDINGS: Bones: The osseous structures and articular surfaces are intact. Bony alignment is satisfactory. No cellulitic or osteomyelitic changes are identified. Degenerative changes are seen around the hip. Enthesophytes are seen arising from the greater trochanter. No lytic or sclerotic lesions are identified. Soft Tissues: There is again seen an 3.9 cm infrarenal abdominal aortic aneurysm. Atherosclerotic calcification is present. There is diverticulosis seen in the colon. IMPRESSION: 1. There is no acute fracture or dislocation. 2. Stable 3.9 cm infrarenal abdominal aortic aneurysm. RADIATION DOSE DELIVERED: 279.76mGy.cm Total DLP 279.76mGy.cm Total DLP DATA REPOSITORY: All CT scans at this facility are submitted to the National Radiology Data Registry (NRDR) Dose Index Registry (DIR) with the [employer] (ACR). RADIATION OPTIMIZATION: All CT scans at this facility use at least one of these dose optimization techniques: automated exposure control; mA and/or kV adjustment per patient size (includes targeted exams where dose is matched to clinical indication); or iterative reconstruction.
[2024-11-04] MEDS: Dexamethasone 4 MG TAB PO (19:04)
[2024-11-04 19:09] VITALS: PULSE 73; RESP 18; O2SAT 96
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
[2024-11-07 11:29] LABS: Lyme Ab w Rflx to Lyme Confirm Negative (Negative)
[2024-11-09 21:50] LABS: B. miyamotoi PCR Negative (Negative); Babesia divergens/MO-1 Negative (Negative); Ehrlichia muris eauclairensis Negative (Negative)
== END 2024-11-04 19:11 | disposition home or self-care (01) ==
PROVIDERS: Emergency Provider Physician Assistant; PCP Nurse Practitioner Family
DX: M25.551 Pain in right hip (principal)
CPT/HCPCS: 99284 ×2; 80053; 85652; 87798; 73502; 73700; 85025; 86140; 86618; J8540

== ENCOUNTER 2024-11-07 23:58 | Emergency (ER) | payer MEDICARE, SELFPAY ==
[2024-11-08 00:01] VITALS: BP 174/68; PULSE 83; RESP 18; TEMP 36.8; O2SAT 98
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
[2024-11-08] MEDS: Diclofenac 1% Gel 100 GM TUBE TP (01:05)
[2024-11-08 01:09] VITALS: PULSE 78; RESP 18; O2SAT 100
== END 2024-11-08 01:10 | disposition home or self-care (01) ==
PROVIDERS: Emergency Provider Student in an Organized Health Care Education/Training Program; PCP Nurse Practitioner Family
DX: M25.551 Pain in right hip (principal); G62.9 Polyneuropathy, unspecified; M71.551 Other bursitis, not elsewhere classified, right hip; E11.22 Type 2 diabetes mellitus with diabetic chronic kidney disease; I12.9 Hypertensive chronic kidney disease with stage 1 through stage 4 chronic kidney disease, or unspecified chronic kidney disease; N18.4 Chronic kidney disease, stage 4 (severe); E11.40 Type 2 diabetes mellitus with diabetic neuropathy, unspecified; G20.C Parkinsonism, unspecified; I25.10 Atherosclerotic heart disease of native coronary artery without angina pectoris; J44.9 Chronic obstructive pulmonary disease, unspecified; F17.210 Nicotine dependence, cigarettes, uncomplicated; Z86.73 Personal history of transient ischemic attack (TIA), and cerebral infarction without residual deficits; Z79.82 Long term (current) use of aspirin
CPT/HCPCS: 99283

== ENCOUNTER 2024-12-12 08:24 | Emergency (ER) | payer MEDICARE, SELFPAY ==
[2024-12-12 08:31] VITALS: BP 124/83; PULSE 73; RESP 12; TEMP 36.8; O2SAT 95
--- NOTE | 2024-12-12 09:15 | DI.CT_ITS ---
Exam(s) CT ABD AORTA CTA W RUNOFF EXAM: CT ABD AORTA CTA W RUNOFF CLINICAL HISTORY: back pain down to right foot, dim pulses bilateral. TECHNIQUE: Imaging Protocol: Axial CT angiography was performed with multi- slice acquisition and multi-planar and/or 3D reconstructions. CONTRAST MATERIAL: Intravenous: Omnipaque 350 Contrast volume:150 mL Oral: No COMPARISON: CT CT THORAX ABD/PEL CTA from 03/16/[address] ABDOMEN PELVIS WO from 10/20/[address] LUMBAR SPINE RECONS from 12/12/2024 FINDINGS: There is patient motion artifact. Vascular Structures: Abdomen and pelvis: Celiac [place]/SMA: There is 50-75 percent stenosis at the origin of the celiac axis best appreciated on the sagittal images (series 14, image 42). Renal Arteries: No evidence of occlusion or significant stenosis. Aorta: There is a 3.3 x 3.7 cm infrarenal abdominal aortic aneurysm. Atherosclerotic calcification is present. There is no evidence of a dissection. No dissection. Iliac Arteries: There is no evidence of occlusion. Atherosclerotic calcification is present with less than 50 percent stenosis in the common iliac arteries. There is also 50-75 percent narrowing in the mid left external iliac artery. Lower extremities: Right: There is artifact from the patient's right total knee arthroplasty. Femoral: Multifocal stenoses are seen throughout its entire length. No occlusion is seen. Deep Femoral Artery: No evidence of occlusion or significant stenosis. Popliteal: The popliteal is obscured due to artifact from the patient's right total knee arthroplasty. Knee Trifurcation: No evidence of occlusion or significant stenosis. Infrapopliteal arteries: No evidence of occlusion or significant stenosis. Left: Femoral: Multifocal stenoses are present. There is no occlusion. Deep femoral artery: No evidence of occlusion or significant stenosis. Popliteal: No evidence ofocclusion or significant stenosis. Knee Trifurcation: No evidence of occlusion or significant stenosis. Infrapopliteal arteries: No evidence of occlusion or significant stenosis. Soft Tissues: Lung bases: Dependent atelectasis is seen in the lung bases. Liver: There is diffuse decreased attenuation of the liver suggesting fatty infiltration with sparing around the gallbladder fossa. No measurable mass. Portal, splenic and superior mesenteric veins: Unremarkable. Gallbladder and biliary tract: There is a gallstone present. There is no biliary ductal dilatation. Pancreas: Normal density, no abnormal calcifications or inflammatory process. Spleen: Normal. Kidneys: Normal size, contour and axis. No radiodense stones or obstructive uropathy. There are bilateral simple renal cysts. No follow-up is recommended. Adrenal glands: No masses seen. Lymph nodes: Unremarkable. Bladder: Symmetric distention, no gross wall thickening. Reproductive organs: The prostate gland is enlarged. Bowel: There is diverticulosis of the colon without evidence of acute diverticulitis. There is no evidence of bowel obstruction or bowel wall thickening. There is no evidence of pneumatosis. There is no evidence of appendicitis. Peritoneal cavity: No ascites, collection or mesenteric inflammatory response. No free air. Bones: Within normal limits for the patient's age. Please see the report on the CT recons of the lumbar spine. Soft tissues: Unremarkable. IMPRESSION: 1. No acute abdominal or pelvic process. 2. Incidental findings in the abdomen and pelvis as described above. 3. 3.3 x 3.7 cm infrarenal abdominal aortic aneurysm. There is no evidence of an abdominal aortic dissection. 4. Atelectasis in the lung bases bilaterally. 5. 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 6. Atherosclerotic calcification in the runoff with multifocal stenoses involving both femoral arteries, but no occlusion. 7. The right popliteal artery is difficult to visualize secondary to artifact from the patient's right total knee arthroplasty. 8. The preliminary [facility] report was reviewed. RADIATION DOSE DELIVERED: 649.59mGy.cm Total DLP 649.59mGy.cm Total DLP DATA REPOSITORY: All CT scans at this facility are submitted to the National Radiology Data Registry (NRDR) Dose Index Registry (DIR) with the [employer] ([employer]). RADIATION OPTIMIZATION: All CT scans at this facility use at least one of these dose optimization techniques: automated exposure control; mA and/or kV adjustment per patient size (includes targeted exams where dose is matched to clinical indication); or iterative reconstruction.
--- NOTE | 2024-12-12 09:17 | DI.CT_ITS ---
Exam(s) CT LUMBAR SPINE RECONS EXAM: CT LUMBAR SPINE RECONS CLINICAL HISTORY: back pain with paresthesias to foot. TECHNIQUE: Imaging Protocol: CT reconstructions of the lumbar spine were obtained. Axial, sagittal and coronal images were performed. COMPARISON: CT CT THORAX ABD/PEL CTA from 03/16/[address] LOWER EXTREMITY RT WO from 11/04/2024 FINDINGS: Bones: The last intervertebral disc space is designated the L5/S1 level for the numbering purpose of this examination. There are degenerative changes seen throughout the lumbar spine characterized by joint space narrowing and osteophytes. Facet arthropathy is seen at L5-S1. Vacuum discs are seen at all levels of the lumbar spine. Alignment is satisfactory. There are no acute fractures or subluxations present. No large disc bulges are seen in the lumbar spine. There is a diffuse disc bulge seen at L5-S1. No significant central spinal canal stenosis is present at this level. There is [id number] bilateral neural foraminal stenosis. There is a mild diffuse disc bulge, facet arthropathy and ligamentum flavum hypertrophy at L3-L4 causing mild narrowing of the central spinal canal. There is no significant neural foraminal stenosis at this level. IMPRESSION: 1. Multilevel degenerative changes in the lumbar spine resulting in mild narrowing of the central spinal canal at L3-L4 and [id number] bilateral neural foraminal stenosis at L5-S1. 2. There is no acute fracture or subluxation of the lumbar spine. 3. The preliminary [facility] report was reviewed. RADIATION DOSE DELIVERED: 649.59mGy.cm Total DLP 649.59mGy.cm Total DLP DATA REPOSITORY: All CT scans at this facility are submitted to the National Radiology Data Registry (NRDR) Dose Index Registry (DIR) with the [employer] ([employer]). RADIATION OPTIMIZATION: All CT scans at this facility use at least one of these dose optimization techniques: automated exposure control; mA and/or kV adjustment per patient size (includes targeted exams where dose is matched to clinical indication); or iterative reconstruction.
[2024-12-12] MEDS: MORPHine 10 MG/ML VIAL 2 MG IVP (09:30)
[2024-12-12 09:31] LABS: Abs Immature Grans 0.21 10^3/uL (0.0-0.06); HCT 42.1 % (40.0-50.0); HGB 13.4 g/dL (13.5-17.5); Immature Grans % 1.5 %; MCH 30.2 pg (27.0-33.0); MCHC 31.8 % (32.0-36.0); MCV 95 fL (80-95); MPV 9.8 fL (8.0-11.0); Platelet Count 261 10^3/uL (130-400); RBC 4.43 10^6/uL (4.36-5.78); RDW 14.7 % (11.8-14.1); RDW-SD 51.5 fL; WBC 14.24 10^3/uL (4.4-10.8)
[2024-12-12] MEDS: oxyCODONE 5 MG TAB 2.5 MG PO (09:31)
[2024-12-12] MEDS: Gabapentin 100 MG CAP PO (09:31)
[2024-12-12 09:37] LABS: Anion Gap 9.7 mmol/L (3-11); BUN 28 mg/dL (7-18); CO2 26.3 mmol/L (21.0-32.0); Calcium 9.1 mg/dL (8.5-10.1); Chloride 101 mmol/L (98-107); Estimated GFR 30.28 (mL/min/1.73m2); Glucose 162 mg/dL (74-106); Potassium 5.1 mmol/L (3.5-5.1); Sodium 137 mmol/L (136-145)
--- NOTE | 2024-12-12 09:41 | NUR.NOTE ---
Attempted to reposition the patient to relieve pressure and patient adamantly refused to be moved even after 4 mg of IV morphine.
[2024-12-12] MEDS: Normal Saline - Diluent 50 ML VIAL 100 ML IJ (10:08)
[2024-12-12] MEDS: Omnipaque 350 MG/ML 100 ML BTL IJ (10:12)
[2024-12-12] MEDS: Omnipaque 350 MG/ML 50 ML BTL IJ (10:15)
--- NOTE | 2024-12-12 11:09 | DI.[facility]_ITS ---
Addendum created by Lili Lucas MD on 12/12/2024 12:39:39 PM EDT: THIS REPORT CONTAINS FINDINGS THAT MAY BE CRITICAL TO PATIENT CARE. The findings were verbally communicated via telephone conference with Roopa Causey at 12:39 PM EDT on 12/12/2024. The findings were acknowledged and understood. 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 3D rendering (Not supervised by radiologist): MIP and/or 3D reconstructed images were created by the technologist. 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 Celiac trunk and mesenteric arteries: No occlusion or significant stenosis. Renal arteries: No occlusion or significant stenosis. Right iliac arteries: Right common iliac artery 16.6 mm Right femoral/popliteal arteries: No occlusion or significant stenosis. Right infrapopliteal arteries: No occlusion or significant stenosis. Left iliac arteries: No occlusion or significant stenosis. Left femoral/popliteal arteries: No occlusion or significant stenosis. Left infrapopliteal arteries: No occlusion or significant stenosis. Lungs: Ground-glass opacities in the lower lobes may represent atelectasis or pneumonia . Coronary arteries: Coronary artery calcifications may indicate coronary artery disease. Liver: No mass. Gallbladder and biliary ducts: Hyperdense blush adjacent to the gallbladder. Recommend further evaluation if clinically indicated . Gallstone in the gallbladder. Pancreas: Pancreatic atrophy Spleen: Normal. No splenomegaly. Adrenal glands: Normal. No mass. Kidneys and ureters: 11.6 mm cyst posterior left kidney . No follow-up imaging recommended . Stomach and bowel: Diverticulosis of the rectosigmoid. No diverticulitis. Appendix: No evidence of appendicitis. Urinary bladder: Unremarkable. No mass. Reproductive: Unremarkable as visualized. Intraperitoneal space: Unremarkable. No free air. No significant fluid collection. Lymph nodes: No lymphadenopathy. Bones/joints: Total knee replacement in the right. Soft tissues: Unremarkable. Other findings: No occlusion or significant stenosis. IMPRESSION: 1. No occlusion or significant stenosis. 2. Ground-glass opacities in the lower lobes may represent atelectasis or pneumonia . 3. Hyperdense blush adjacent to the gallbladder. Recommend further evaluation if clinically indicated . 4. Gallstone in the gallbladder. 5. 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 Dictated and Authenticated by: Lili Lucas MD. Orderin Marium Blas MD
--- NOTE | 2024-12-12 11:12 | DI.[facility]_ITS ---
PROCEDURE INFORMATION: Exam: CT Lumbar Spine Without Contrast Exam date and time: 12/12/2024 10:01 AM Age: 84 years old Clinical indication: Other: Back pain with paresthesias to foot TECHNIQUE: Imaging protocol: Computed tomography of the lumbar spine without contrast. COMPARISON: CT ABDOMEN PELVIS WO 10/20/2024 12:52 PM FINDINGS: Bones/joints: No acute fracture or dislocation.. Broad-based disc bulge, facet hypertrophy, and ligament hypertrophy at L3/L4 and L4/L5 consistent with spinal stenosis. . Broad-based disc bulge at L5/S1 consistent with degenerative disc disease. Soft tissues: Unremarkable. IMPRESSION: 1. No acute fracture or dislocation.. 2. Broad-based disc bulge, facet hypertrophy, and ligament hypertrophy at L3/L4 and L4/L5 consistent with spinal stenosis. . 3. Broad-based disc bulge at L5/S1 consistent with degenerative disc disease. Dictated and Authenticated by: Lili Lucas MD. Orderin Marium Blas MD
[2024-12-12 13:37] VITALS: BP 158/85; PULSE 74; RESP 20; O2SAT 95
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
== END 2024-12-12 13:38 | disposition home or self-care (01) ==
PROVIDERS: Emergency Provider Physician Assistant; PCP Nurse Practitioner Family
DX: M54.16 Radiculopathy, lumbar region (principal); K76.89 Other specified diseases of liver; Z60.8 Other problems related to social environment
CPT/HCPCS: 99284; 99285; 96374; 36415; 75635; 80048; 85025; J2270; J3490; Q9967

== ENCOUNTER 2024-12-19 14:21 | Emergency (ER) | payer MEDICARE, SELFPAY ==
--- NOTE | 2024-12-19 09:32 | DI.MRI_ITS ---
Exam(s) MR LOWER JOINT RT W EXAM: MR LOWER JOINT RT WO CLINICAL HISTORY: Right thigh through lower extremity pain TECHNIQUE: Multiplanar multisequence MRI of Pelvis was performed COMPARISON: CT CT ABDOMEN PELVIS WO from 10/20/[address] LOWER EXTREMITY RT WO from 11/04/2024 CR XR HIP RT COMPLETE AP PELVIS from 11/04/[address] ABD AORTA CTA W RUNOFF from 12/12/2024 FINDINGS: Exam is limited by motion. Bones: There is no fracture or contusion pattern. No bone marrow edema is seen. Joints: No significant joint effusion is present. The glenoid labrum mA grossly intact bilaterally. The SI joints and symphysis pubis are well maintained. Musculotendinous structures: Musculotendinous structures demonstrate no abnormality. Intrapelvic contents: Prominent sigmoid diverticulosis. The prostate is mildly enlarged and impresses on the base of the bladder. There is no significant bladder wall thickening. IMPRESSION: No acute abnormality in the pelvis or right hip.. DATA REPOSITORY:
[2024-12-19 14:26] VITALS: BP 119/65; PULSE 78; RESP 18; TEMP 36.6; O2SAT 95
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
--- NOTE | 2024-12-19 15:15 | DI.MRI_ITS ---
Exam(s) MR LOWER JOINT RT WO EXAM: MR LOWER JOINT RT WO CLINICAL HISTORY: Right thigh through lower extremity pain TECHNIQUE: Multiplanar multisequence MRI of Pelvis was performed COMPARISON: CT CT ABDOMEN PELVIS WO from 10/20/[address] LOWER EXTREMITY RT WO from 11/04/2024 CR XR HIP RT COMPLETE AP PELVIS from 11/04/[address] ABD AORTA CTA W RUNOFF from 12/12/2024 FINDINGS: Exam is limited by motion. Bones: There is no fracture or contusion pattern. No bone marrow edema is seen. Joints: No significant joint effusion is present. The glenoid labrum mA grossly intact bilaterally. The SI joints and symphysis pubis are well maintained. Musculotendinous structures: Musculotendinous structures demonstrate no abnormality. Intrapelvic contents: Prominent sigmoid diverticulosis. The prostate is mildly enlarged and impresses on the base of the bladder. There is no significant bladder wall thickening. IMPRESSION: No acute abnormality in the pelvis or right hip.. DATA REPOSITORY:
--- NOTE | 2024-12-19 15:30 | DI.MRI_ITS ---
Exam(s) MR LUMBAR SPINE WO/W EXAM: MR LUMBAR SPINE WO/W CLINICAL HISTORY: right leg weakness. TECHNIQUE: Multiplanar multisequence MRI of the Lumbar Spine was performed. Additional pre and post gadolinium fat suppressed T1 sagittal and axial sequences were performed. CONTRAST MATERIAL: IV Contrast: 15 mL of Dotarem contrast administered. COMPARISON: CR XR HIP RT COMPLETE AP PELVIS from 11/04/[address] ABD AORTA CTA W RUNOFF from 12/12/[address] LUMBAR SPINE RECONS from 12/12/2024 FINDINGS: Bones: The last intervertebral disc space is designated the L5/S1 level for the numbering purpose of this examination. The vertebral body heights are well maintained. There is a mild degenerative scoliosis The marrow signal characteristics are unremarkable. There is no evidence of osteomyelitis or discitis. There is no abnormal enhancement within the central canal. There is no abnormal nerve root enhancement. Cord: The conus tip ends at the T12 level. It is of normal size and signal intensity. T12-L1: No disc herniations or bulges are present. No central spinal canal or neural foraminal stenosis. L1-2: There is a marked loss of disc height. There are endplate osteophytes no disc herniations or bulges are present. No central spinal canal or neural foraminal stenosis. L2-3: Severe loss of disc height. Endplate osteophytes eccentric toward the left. There is question of a small left lateral disc protrusion versus osteophyte. There is left lateral recess narrowing but no central spinal canal or neural foraminal stenosis. L3-4: Severe loss of disc height. Circumferentially projecting osteophytes. No disc herniations or bulges are present. No central spinal canal or neural foraminal stenosis. L4-5: Marked loss of disc height. Circumferentially projecting osteophytes. No disc herniations or bulges are present. No central spinal canal or neural foraminal stenosis. L5-S1: Severe loss of disc height. Circumferentially projecting osteophytes. Facet degenerative changes. Bilateral neural foraminal narrowing, greater on the right. No disc herniations or bulges are present. No central spinal canal or neural foraminal stenosis. Rudimentary disc at S1-2. The visualized SI joints and sacrum are well maintained. Soft tissues: The paraspinal soft tissues are unremarkable. There is an inferior abdominal aortic aneurysm which is not fully included in the field of view. There is no evidence of suspicious enhancement. IMPRESSION: Multilevel degenerative disc changes. Small left lateral disc protrusion at L2- 3. No significant central canal stenosis at any level. Neural foraminal narrowing right greater than left at L5-S1 secondary to a combination of degenerative changes. No evidence of discitis or osteomyelitis. DATA REPOSITORY:
[2024-12-19] MEDS: MORPHine 4 MG/ML SYR IVP (15:34)
[2024-12-19 15:38] LABS: Abs Immature Grans 0.14 10^3/uL (0.0-0.06); HCT 39.7 % (40.0-50.0); HGB 12.8 g/dL (13.5-17.5); Immature Grans % 1.7 %; MCH 30.5 pg (27.0-33.0); MCHC 32.2 % (32.0-36.0); MCV 95 fL (80-95); MPV 9.7 fL (8.0-11.0); Platelet Count 272 10^3/uL (130-400); RBC 4.20 10^6/uL (4.36-5.78); RDW 14.7 % (11.8-14.1); RDW-SD 50.6 fL; WBC 8.03 10^3/uL (4.4-10.8)
[2024-12-19 15:51] LABS: Anion Gap 8.1 mmol/L (3-11); BUN 30 mg/dL (7-18); CO2 24.9 mmol/L (21.0-32.0); Calcium 8.7 mg/dL (8.5-10.1); Chloride 99 mmol/L (98-107); Estimated GFR 32.10 (mL/min/1.73m2); Glucose 337 mg/dL (74-106); Potassium 5.1 mmol/L (3.5-5.1); Sodium 132 mmol/L (136-145)
[2024-12-19] MEDS: Normal Saline Flush 10 ML SYR IVP (16:48)
[2024-12-19] MEDS: Gadoterate meglumine 20 ML SYRINGE IVP (16:48)
--- NOTE | 2024-12-19 18:37 | ED.PROG_ITS ---
Date of service: 12/19/24 Time of Service: 18:37 Medical Decision Making Patient signed out to me pending MRI results and reassessment. MRI shows no emergent pathology of the spinal cord. Has degenerative disc disease. Has a left lateral disc protrusion at L2-3 and also some foraminal narrowing right greater than left at L5-S1. Patient has been ambulating better. We discussed admission for pain control and PT which he declines he has Medical Decision Making capacity. Given the reassuring MRI I feel this is reasonable. He states the oxycodone has really helped the next morphine and more so I will have him avoid oxycodone will give a short supply of morphine. Also provide lidocaine patches with prednisone as he should be taking NSAIDs with his fracture. He will follow-up with PCP and return precautions Multilevel degenerative disc changes. Small left lateral disc protrusion at L2- 3. No significant central canal stenosis at any level. Neural foraminal narrowing right greater than left at L5-S1 secondary to a combination of degenerative changes. No evidence of discitis or osteomyelitis. Quality:SDOH Health Related Social Needs: Health related social needs lonely/isolated Discharge Plan Disposition Patient Disposition: Home Condition: Stable Discharge Details Clinical Impression: Right leg weakness, Back pain Primary Care Provider: Maritza Tomlinson ED Provider: Carlos Comer [place] Meds and New Rx's Prescriptions: New prednisone 20 mg tablet 60 mg PO DAILY 5 Days Qty: 15 0RF morphine 15 mg tablet 15 mg PO QHS PRNQty: 7 0RF lidocaine 5 % adhesive patch,medicated 1 patch topical DAILY Qty: 30 0RF Rx Instructions: leave on most painful area for up to 12 hrs Continued nitroglycerin 0.4 mg tablet, sublingual 0.4 mg sublingual Q5M PRN (Reason: chest pain) Qty: 60 0RF Rx Instructions: Take 1 once, repeat every 5min for 3 doses if needed. Call 911 if no relief after 3rd donepezil 10 mg tablet 10 mg PO DAILY tramadol 50 mg tablet 50 mg PO BID PRN (Reason: pain) Qty: 30 0RF carbidopa-levodopa 25-100 mg tablet 1 tab PO TID aspirin 81 mg tablet,chewable 81 mg PO DAILY Qty: 90 3RF atorvastatin 40 mg tablet 40 mg PO DAILY Qty: 90 3RF fluoxetine 40 mg capsule 40 mg PO DAILY Qty: 90 3RF semaglutide 14 mg tablet 14 mg PO DAILY Qty: 90 3RF metoprolol succinate 25 mg tablet extended release 24 hr 25 mg PO DAILY Qty: 90 3RF insulin glargine [Basaglar KwikPen U-100 Insulin] 100 unit/mL (3 mL) insulin pen 16 unit subcut DAILY Qty: 15 3RF albuterol sulfate 90 mcg/actuation HFA aerosol inhaler 2 puff Inhalation Q6H PRN (Reason: shortness of breath or wheezing) Qty: 18 3RF jtamccnedib-dgiurylsm-umakvraw 200-62.5-25 mcg blister with device 1 inh inhalation DAILY Qty: 60 3RF carbidopa-levodopa 25-250 mg tablet 1 tab PO TID doxepin 6 mg tablet 6 mg PO QHS Qty: 60 1RF Rx Instructions: Take 1 tablet 30 minutes before bedtime buspirone 10 mg tablet 10 mg PO BID Qty: 180 3RF famotidine 20 mg tablet 20 mg PO BID Qty: 180 3RF No Action (DME) pen needle, diabetic [BD Dorie 2nd Gen Pen Needle] 32 gauge x 5/32 needle See Rx Instructions .MEDSUPPLY Qty: 100 3RF Rx Instructions: Use with pen daily (DME) lancets [OneTouch Delica Plus Lancet] 33 gauge misc See Rx Instructions .ROUTE .MEDSUPPLY Qty: 200 4RF Rx Instructions: Check blood sugar twice a day (DME) Accu-Chek Guide test strips Strip See Rx Instructions .ROUTE .MEDSUPPLY Qty: 200 4RF Rx Instructions: Check blood sugar twice a day Discharge Instructions Additional Instructions: Your MRI showed degenerative disc disease and you have a small disc herniation. Follow-up with your primary care provider. You can take 1000 mg of acetaminophen every 6 hours as needed, do not exceed 2000 mg in a 24-hour period. He should avoid taking NSAIDs such as ibuprofen. If you are taking morphine do not take oxycodone with it. If you feel more ill or have new symptoms such as high fevers return to emergency department for reevaluation.
[2024-12-19] MEDS: MORPHine IR 15 MG TAB PO (18:53)
[2024-12-19] MEDS: Lidocaine 5% Patch 1 PATCH TP (18:53)
[2024-12-19 18:57] VITALS: BP 164/80; PULSE 78; RESP 18; TEMP 37; O2SAT 97
== END 2024-12-19 18:56 | disposition home or self-care (01) ==
PROVIDERS: Emergency Medicine; Emergency Provider Emergency Medicine; PCP Nurse Practitioner Family
DX: R53.1 Weakness (principal); M51.26 Other intervertebral disc displacement, lumbar region
CPT/HCPCS: 99285; 99284; 96374; 00123; 72158; 73721; 80048; 93971; 73722; 85025; J2270

== ENCOUNTER 2024-12-29 09:08 | Emergency (ER) | payer MEDICARE, SELFPAY ==
[2024-12-29] VITALS (64 sets, daily range): BP systolic 81–219; BP diastolic 37–173; PULSE 57–82; RESP 8–24; TEMP 35.5; O2SAT 90–98
--- NOTE | 2024-12-29 09:00 | RT.EKG_ITS ---
APPROVED REPORT Exam: Resting ECG Reason for Exam: weakness Patient Location: E HR:67 bpm ECG Measurements Heart Rate 67 AXIS IN 161 P 82 QRSd 81 QRS 16 QT 420 T 73 QTc 436 Conclusion Sinus rhythm...normal P axis, V-rate 60- 99 Atrial premature complex...SV complex w/ short R-R interval I have reviewed and interpreted ECG and agree with software generated interpretation.
--- NOTE | 2024-12-29 09:15 | DI.CT_ITS ---
Exam(s) CT CHEST/ABD/PEL WO EXAM: CT CHEST/ABD/PEL WO CLINICAL HISTORY: fall, altered, SOB, right hip pain TECHNIQUE: Imaging Protocol: Axial computed tomography images with coronal and sagittal reformatted images were created and reviewed. Computer aided detection (CAD) was utilized. COMPARISON: CT CT THORAX ABD/PEL CTA from 03/16/[address] ABDOMEN PELVIS WO from 10/20/2024 FINDINGS: Lack of IV contrast does limit evaluation of the abdominal pelvic organs. CHEST: Tracheobronchial tree: Patent where visualized. No bronchiectasis. There is a small amount of fluid seen in the trachea. Pulmonary parenchyma: There is dependent atelectasis. Moderate emphysematous changes are present in the lungs. No architectural distortion. Mediastinum and [place]: No dominant adenopathy or fluid collection. The esophagus is unremarkable. Thyroid gland: Unremarkable. Pleura: No effusion or pneumothorax. Heart: The heart is not dilated. [id number] coronary artery calcification is present. No pericardial effusion. Aorta: Thoracic aorta non-dilated. Atherosclerotic calcification is present. Lymph nodes: Within normal limits. Bones:Within normal limits for the patient's age. There are no displaced rib fractures. Age-appropriate degenerative changes are seen in the thoracic spine. There is no acute fracture or subluxation in the thoracic spine. Soft tissues: Unremarkable. ABDOMEN: Liver: Normal density. No measurable mass. Gallbladder and Biliary Tract: Cholelithiasis. There is no biliary ductal dilatation. Pancreas: Normal density, no abnormal calcifications or inflammatory process. Spleen: Normal. Adrenals: No masses seen. Kidneys: Normal size, contour and axis. No radiodense stones or obstructive uropathy. There is a stable cyst is seen in the lower pole of the left kidney. No follow-up is recommended. Abdominal Aorta: Atherosclerotic calcification is present. There is a 3.6 x 3.9 cm infrarenal abdominal aortic aneurysm. Bowel: There is diverticulosis of the colon, but no evidence of acute diverticulitis. There is no evidence of bowel obstruction or bowel wall thickening. Appendix is unremarkable. Peritoneal Cavity: No ascites, collection or mesenteric inflammatory response. No free air. Lymph Nodes: Within normal limits. Bones: Within normal limits for the patient's age. Age-appropriate degenerative changes are seen in the lumbar spine. There is no acute fracture seen in the lumbar spine or pelvis. Soft Tissues: Unremarkable. PELVIS: Bladder: Symmetric distention, no gross wall thickening. Reproductive Organs: Mildly enlarged prostate gland. Lymph Nodes: Within normal limits. Bones: Within normal limits for the patient's age. IMPRESSION: 1. No acute abdominal or pelvic process. 2. Incidental findings in the abdomen and pelvis. 3. No acute fracture. 4. Dependent atelectasis in the lungs. RADIATION DOSE DELIVERED: 813.29mGy.cm Total DLP 813.29mGy.cm Total DLP DATA REPOSITORY: All CT scans at this facility are submitted to the National Radiology Data Registry (NRDR) Dose Index Registry (DIR) with the [employer] ([employer]). RADIATION OPTIMIZATION: All CT scans at this facility use at least one of these dose optimization techniques: automated exposure control; mA and/or kV adjustment per patient size (includes targeted exams where dose is matched to clinical indication); or iterative reconstruction.
--- NOTE | 2024-12-29 09:15 | DI.CT_ITS ---
Exam(s) CT HEAD WO EXAM: CT HEAD WO CLINICAL HISTORY: confused, fall?. TECHNIQUE: Imaging Protocol: Axial computed tomography images with coronal and sagittal reformatted images were created and reviewed COMPARISON: CT HEAD WITHOUT CONTRAST from 08/13/[address] HEAD WO from 12/29/2022 FINDINGS: Ventricles and Extra axial spaces: Normal in size and morphology for the patient's age. Hemorrhage: None. Cerebral parenchyma: There are areas of decreased attenuation in the white matter most consistent with chronic microvascular ischemic disease. There is no evidence of an acute territorial infarct or acute mass effect. Midline shift: None. Brainstem/Cerebellum: Normal. Calvarium: Normal. Visualized Paranasal sinuses/Mastoids: Clear. Soft Tissues: Unremarkable. IMPRESSION: No acute intracranial process. RADIATION DOSE DELIVERED: 831.79mGy.cm Total DLP DATA REPOSITORY: All CT scans at this facility are submitted to the National Radiology Data Registry (NRDR) Dose Index Registry (DIR) with the [employer] (ACR). RADIATION OPTIMIZATION: All CT scans at this facility use at least one of these dose optimization techniques: automated exposure control; mA and/or kV adjustment per patient size (includes targeted exams where dose is matched to clinical indication); or iterative reconstruction.
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
[2024-12-29] MEDS: ACETAMINOPHEN 1,000 MG/100 ML BAG 400 MG IVPB (09:50)
[2024-12-29 10:04] LABS: BE (Venous) 1 mmol/L (-2-3); HCO3 (Venous) 27 mmol/L (23-28); O2 Sat (Venous) 38 %; TCO2 (Venous) 25 mmol/L (24-29); pCO2 (Venous) 51 mmHg (41-51); pO2 (Venous) 25 mmHg
[2024-12-29 10:05] LABS: Abs Immature Grans 0.37 10^3/uL (0.0-0.06); HCT 41.8 % (40.0-50.0); HGB 13.5 g/dL (13.5-17.5); Immature Grans % 2.3 %; MCH 30.5 pg (27.0-33.0); MCHC 32.3 % (32.0-36.0); MCV 95 fL (80-95); MPV 9.5 fL (8.0-11.0); Platelet Count 214 10^3/uL (130-400); RBC 4.42 10^6/uL (4.36-5.78); RDW 15.0 % (11.8-14.1); RDW-SD 52.2 fL; WBC 16.35 10^3/uL (4.4-10.8)
[2024-12-29 10:20] LABS: INR 1.1 (0.9-1.1); PTT Activated 23.6 sec (20.6-30.2); Prothrombin Time 10.8 sec (9.1-11.1)
[2024-12-29 10:22] LABS: Ammonia 10 umol/L (11-32)
[2024-12-29 10:30] LABS: ALT 40 U/L (16-63); AST 33 U/L (15-37); Albumin 3.8 g/dL (3.4-5.0); Alkaline Phosphatase 69 U/L (46-116); Anion Gap 9.3 mmol/L (3-11); BUN 31 mg/dL (7-18); Bilirubin, Total 0.8 mg/dL (0.2-1.0); CO2 28.7 mmol/L (21.0-32.0); Calcium 8.7 mg/dL (8.5-10.1); Chloride 102 mmol/L (98-107); Estimated GFR 39.02 (mL/min/1.73m2); Glucose 78 mg/dL (74-106); Potassium 3.9 mmol/L (3.5-5.1); Sodium 140 mmol/L (136-145); Total Protein 7.4 g/dL (6.4-8.2); Troponin I 11 ng/L (<or=76)
[2024-12-29 10:34] LABS: Procalcitonin < 0.10 ng/mL
[2024-12-29 10:42] LABS: TSH (W/Ref FT4) 2.04 uIU/mL (0.36-3.74)
[2024-12-29 11:52] LABS: Troponin I 10 ng/L (<or=76)
[2024-12-29 11:56] LABS: COVID-19 PCR Negative (Negative); RSV PCR Negative (Negative)
[2024-12-29] MEDS: Normal Saline 500 ML IV (12:04)
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
--- NOTE | 2024-12-29 15:38 | PHA.ACLINAW ---
Renal Dosing Renal Dosing: BUN 31 mg/dL (7-18) H 12/29/24 09:55 Creatinine 1.7 mg/dL (0.70-1.30) H 12/29/24 09:55 Anticoagulation Anticoagulation: Hgb 13.5 g/dL (13.5-17.5) 12/29/24 09:55 Hct 41.8 % (40.0-50.0) 12/29/24 09:55 Plt Count 214 10^3/uL (130-400) 12/29/24 09:55 INR 1.1 (0.9-1.1) 12/29/24 09:55 Creatinine 1.7 mg/dL (0.70-1.30) H 12/29/24 09:55 Relevant Labs Relevant Labs: Sodium 140 mmol/L (136-145) 12/29/24 09:55 Potassium 3.9 mmol/L (3.5-5.1) 12/29/24 09:55 Chloride 102 mmol/L (98-107) 12/29/24 09:55 DM Control DM Control: Glucose 78 mg/dL (74-106) 12/29/24 09:55 Cardiac Review Cardiac Review: Troponin I Cancelled 12/29/24 12:20 Pharmacy Antibiotic Review Relevant Labs: Relevant Labs 12/29/24 09:55 Procalcitonin < 0.10 Comments Comments/Follow Ups: Per pulmonary note on 05/06 plan is to continue Trelogy. Provider aware it has not been refilled since Mar.
[2024-12-29 16:00] LABS: Glucose Negative (Negative)
--- NOTE | 2024-12-30 09:10 | W.NUTRFU ---
Date of service: 12/30/24 Time of Service: 09:10 Nutrition Note NOTE: received consult later yesterday regarding diabetes education/mgt. Was unable to visit with pt in ED yesterday and was discharged home before I could attempt a visit this morning. Pt has been on my outpatient referral list and currently in the midst of booking outpatient education. Will followup with outpatient note and nutrition plan Time Spent in Nutritional Counseling and Treatment: 0
--- NOTE | 2024-12-31 08:41 | NUR.NOTE ---
Accessed Pt chart to look up diagnosis and add it to the [facility] paperwork.
--- NOTE | 2024-12-31 08:43 | W.ED.FU ---
Date of service: 12/31/24 Time of Service: 08:43 Follow Up Plan: Cultures results reviewed, gram-positive HD, 10,000 thousand colonies. This is likely consistent with contaminant. After reviewing patient's emergency department evaluation, suspicion for placement of urinary tract infection. Will not prescribe antiboitics.
== END 2024-12-29 16:55 | disposition home or self-care (01) ==
LOC: ER 13:01 → EDHOLD 16:37
PROVIDERS: Emergency Provider Student in an Organized Health Care Education/Training Program; PCP Nurse Practitioner Family
DX: R53.1 Weakness (principal); R41.82 Altered mental status, unspecified; T40.2X5A Adverse effect of other opioids, initial encounter; I10 Essential (primary) hypertension; G20.A1 Parkinson's disease without dyskinesia, without mention of fluctuations; Z86.79 Personal history of other diseases of the circulatory system; Z60.8 Other problems related to social environment
CPT/HCPCS: 00123; 36415; 71250; 80048; 80053; 82805; 84145; 87040; 87637; 93005; 96361; 96374; 99284; 99285; 70450; 74176; 81003; 82140; 83605; 84443; 84484; 85025; 85610; 85730; 87086; 93010; J0131; J1815

== ENCOUNTER 2025-01-09 02:49 | Observation (INO) | payer MEDICARE, SELFPAY ==
[2025-01-09] VITALS (15 sets, daily range): BP systolic 167–200; BP diastolic 58–90; PULSE 68–80; RESP 15–18; TEMP 36–36.7; O2SAT 80–100
--- NOTE | 2025-01-09 03:15 | RT.EKG_ITS ---
APPROVED REPORT Exam: Resting ECG Reason for Exam: anxiety Patient Location: E HR:72 bpm ECG Measurements Heart Rate 72 AXIS WV 161 P 95 QRSd 81 QRS -25 QT 400 T 62 QTc 439 Conclusion Sinus rhythm...normal P axis, V-rate 60- 99
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
[2025-01-09] MEDS: ACETAMINOPHEN 1,000 MG/100 ML BAG 400 MG IVPB (03:56)
[2025-01-09] MEDS: Ketorolac 15 MG/ML VIAL IVP (03:56)
[2025-01-09] MEDS: diphenhydrAMINE 50 MG/ML VIAL 25 MG IVP (03:57)
[2025-01-09 04:00] LABS: Abs Immature Grans 0.08 10^3/uL (0.0-0.06); HCT 33.2 % (40.0-50.0); HGB 10.6 g/dL (13.5-17.5); Immature Grans % 1.0 %; MCH 31.0 pg (27.0-33.0); MCHC 31.9 % (32.0-36.0); MCV 97 fL (80-95); MPV 9.3 fL (8.0-11.0); Platelet Count 142 10^3/uL (130-400); RBC 3.42 10^6/uL (4.36-5.78); RDW 15.4 % (11.8-14.1); RDW-SD 54.4 fL; WBC 8.01 10^3/uL (4.4-10.8)
[2025-01-09 04:20] LABS: ALT 9 U/L (16-63); AST 25 U/L (15-37); Albumin 3.2 g/dL (3.4-5.0); Alkaline Phosphatase 53 U/L (46-116); Anion Gap 10.1 mmol/L (3-11); BUN 25 mg/dL (7-18); Bilirubin, Total 0.9 mg/dL (0.2-1.0); CO2 23.9 mmol/L (21.0-32.0); Calcium 7.7 mg/dL (8.5-10.1); Chloride 106 mmol/L (98-107); Estimated GFR 41.96 (mL/min/1.73m2); Glucose 132 mg/dL (74-106); Magnesium 1.5 mg/dL (1.8-2.4); Potassium 3.8 mmol/L (3.5-5.1); Sodium 140 mmol/L (136-145); Total Protein 6.0 g/dL (6.4-8.2); Troponin I 11 ng/L (<or=76)
[2025-01-09 05:25] LABS: Troponin I 11 ng/L (<or=76)
[2025-01-09] MEDS: Haloperidol 5 MG/ML VIAL 1 MG IV (05:26)
[2025-01-09 07:14] LABS: Troponin I 11 ng/L (<or=76)
--- NOTE | 2025-01-09 08:24 | ED.PROG_ITS ---
Date of service: 01/09/25 Time of Service: 08:24 Medical Decision Making I received signout on this 84-year-old male with drug delirium secondary to recent initiation of buprenorphine. Anticipate patient will require hospitalization in the setting of his intermittent confusion and increased anxiety and persistent agitation. He has received diphenhydramine. 11:31 AM I was in touch w/Dr. Hudson who requested a PT consult. Patient unfortunately could not engage in any meaningful way with physical therapy. He will require additional time to metabolize and he will benefit from observation in the hospital. Dr. Hudson graciously agreed to accept patient for hospitalization after evaluating the patient. Quality:SDOH Health Related Social Needs: Health related social needs lonely/isolated Discharge Plan Disposition Patient Disposition: Admit to [facility] Condition: Stable Discharge Details Clinical Impression: Delirium, drug-induced, Lumbar radiculopathy, right, Akathisia Admit Date/Time: 01/09/25 10:58 Admit Provider: Andrew Hudson Attending Provider: Andrew Hudson Primary Care Provider: Maritza Tomlinson ED Provider: Tristan Pina Discharge Data Discharge Date/Time-TO BE ENTERED AT DEPARTURE: 01/09/25 11:16
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
[2025-01-09] MEDS: MAGNESIUM SULFATE 2 GM/50 ML BAG IV_INF (11:37)
[2025-01-09] MEDS: MORPHine 4 MG/ML SYR (17:24)
--- NOTE | 2025-01-09 17:39 | W.PC.ACHO ---
Registration Status: ADM HALI Primary Language: Preferred Language: Setswana ED Information & Data Chief Complaint Anxiety 01/09/25 03:53 Triage Note pt has been anxious for a 01/09/25 02:53 few days since he started a new medication, buprenorphine, also having pain down right side of his leg Medical / Surgical History (Last Reviewed 01/07/25 @ 08:03 by DOROTHY Slater) Essential hypertension CVA (cerebral vascular accident) (~1979) (Last Reviewed 01/07/25 @ 08:03 by DOROTHY Slater) Hx of umbilical hernia repair Status post right knee replacement Most Recent Vital Signs Temperature 36.7 C 01/09/25 05:21 Temperature Source Oral 01/09/25 05:21 Pulse 78 01/09/25 14:01 Respiratory Rate 15 01/09/25 13:13 Respiratory Effort Normal, Non-Labored 01/09/25 03:03 Respiratory Depth Normal 01/09/25 03:03 Respiratory Pattern Normal 01/09/25 03:03 Blood Pressure 176/66 H 01/09/25 14:01 Blood Pressure Mean 109 01/09/25 14:01 Blood Pressure Position Sitting 01/09/25 02:53 Pulse Oximetry 94 01/09/25 13:13 Oxygen Delivery Method Room Air 01/09/25 13:13 Oxygen Flow Rate 0 01/09/25 13:13 Allergies lansoprazole (From Prevacid) Allergy (Verified 01/09/25 02:59) Unknown omeprazole Allergy (Verified 01/09/25 02:59) Unknown trazodone Allergy (Verified 01/09/25 02:59) Unknown zolpidem Allergy (Verified 01/09/25 02:59) Unknown doxycycline Adverse Reaction (Intermediate, Verified 01/09/25 02:59) Photosensitivity Precautions Isolation Standard precaution 01/09/25 03:02 IV IV Catheter Type [Left Forearm Diffusics ] IV Catheter Gauge [Left 20 Forearm] Diagnostics 01/09/25 01/09/25 01/09/25 Range/Units 06:40 05:00 03:45 WBC 8.01 (4.4-10.8) 10^3/uL RBC 3.42 L (4.36-5.78) 10^6/uL Hgb 10.6 L (13.5-17.5) g/dL Hct 33.2 L (40.0-50.0) % MCV 97 H (80-95) fL MCH 31.0 (27.0-33.0) pg MCHC 31.9 L (32.0-36.0) % RDW 15.4 H (11.8-14.1) % Plt Count 142 (130-400) 10^3/uL MPV 9.3 (8.0-11.0) fL Immature Gran % 1.0 % Neutrophils % 54.8 % Lymphocytes % 34.3 % Monocytes % 7.7 % Eosinophils % 1.7 % Basophils % 0.5 % Nucleated RBC % 0.0 (0.0-0.3) % Absolute Neutrophils 4.38 (1.2-6.7) 10^3/uL Absolute Lymphocytes 2.75 (1.2-3.4) 10^3/uL Absolute Monocytes 0.62 (0.1-0.8) 10^3/uL Absolute Eosinophils 0.14 (0.0-0.7) 10^3/uL Absolute Basophils 0.04 (0.0-0.2) 10^3/uL Sodium 140 (136-145) mmol/L Potassium 3.8 (3.5-5.1) mmol/L Chloride 106 (98-107) mmol/L Carbon Dioxide 23.9 (21.0-32.0) mmol/L Anion Gap 10.1 (3-11) mmol/L BUN 25 H (7-18) mg/dL Creatinine 1.6 H (0.70-1.30) mg/dL Est GFR (CKD-EPI 2020) 41.96 (mL/min/1.73m2) Glucose 132 H (74-106) mg/dL Calcium 7.7 L (8.5-10.1) mg/dL Magnesium 1.5 L (1.8-2.4) mg/dL Total Bilirubin 0.9 (0.2-1.0) mg/dL AST 25 (15-37) U/L ALT 9 L (16-63) U/L Alkaline Phosphatase 53 (46-116) U/L Troponin I 11 11 11 (<or=76) ng/L Total Protein 6.0 L (6.4-8.2) g/dL Albumin 3.2 L (3.4-5.0) g/dL Intake and Output - 24 Hour Total 01/09/25 02:49 thru 01/09/25 13:37 Intake Total 150 Balance 150 Weight 70.76 kg Intake: IV 150 Falls Risk Assessment History of Falls No History 01/09/25 03:05 Contributing Factors No Factors 01/09/25 03:05 Ambulatory Aids Independent 01/09/25 03:05 Tubes/Lines None 01/09/25 03:05 Gait Evaluation No gait disturbance 01/09/25 03:05 Cognition No cognitive impairment 01/09/25 03:05 Fall Total Score 0 01/09/25 03:05 Level of Risk Standard/Low Risk 01/09/25 03:05 Problems (Last Reviewed 01/07/25 @ 08:03 by DOROTHY Slater) Lumbar pain (Acute) Confusion (Acute) Lumbar radiculopathy, right (Acute) Delirium, drug-induced (Acute) Akathisia (Acute) CKD (chronic kidney disease) stage 4, GFR 15-29 ml/min (Chronic) Sensorineural hearing loss, bilateral (Chronic) v v v v v v v v v Sending and/or Receiving Nurses: Please use comment section below to note any information pertinent to the patient hand-off not included above. Information / Comments: AOx3, VSS, c/o r hip pain which is chronic.Had a BM in ER. normally continentx2 but was incontinent with stool. LFA IV, 20G. No skin issues. Uses walker, steady on his feet. Report received from: TARIQ Parikh
[2025-01-09] MEDS: Acetaminophen 325 MG TAB 650 MG PO ×2 (18:15→20:15)
[2025-01-09] MEDS: busPIRone 5 MG TAB 10 MG PO (20:15)
[2025-01-09] MEDS: Famotidine 20 MG TAB PO (20:16)
[2025-01-09] MEDS: Normal Saline Flush 10 ML SYR IVP ×2 (20:19)
[2025-01-10 06:48] VITALS: BP 163/70; PULSE 82; RESP 20; TEMP 36.5; O2SAT 91
[2025-01-10 06:52] LABS: Abs Immature Grans 0.05 10^3/uL (0.0-0.06); HCT 35.8 % (40.0-50.0); HGB 11.6 g/dL (13.5-17.5); Immature Grans % 0.6 %; MCH 30.9 pg (27.0-33.0); MCHC 32.4 % (32.0-36.0); MCV 95 fL (80-95); MPV 9.8 fL (8.0-11.0); Platelet Count 151 10^3/uL (130-400); RBC 3.76 10^6/uL (4.36-5.78); RDW 15.5 % (11.8-14.1); RDW-SD 54.3 fL; WBC 8.39 10^3/uL (4.4-10.8)
[2025-01-10 07:07] LABS: Anion Gap 10.5 mmol/L (3-11); BUN 18 mg/dL (7-18); CO2 23.5 mmol/L (21.0-32.0); Calcium 8.3 mg/dL (8.5-10.1); Chloride 107 mmol/L (98-107); Estimated GFR 53.84 (mL/min/1.73m2); Glucose 98 mg/dL (74-106); Potassium 4.0 mmol/L (3.5-5.1); Sodium 141 mmol/L (136-145)
[2025-01-10] MEDS: FLUoxetine 20 MG CAP 40 MG PO (08:29)
[2025-01-10] MEDS: busPIRone 5 MG TAB 10 MG PO (08:29)
[2025-01-10] MEDS: Famotidine 20 MG TAB PO (08:29)
[2025-01-10] MEDS: Atorvastatin 40 MG TAB PO (08:29)
[2025-01-10] MEDS: Metoprolol CR 25 MG TABCR PO (08:29)
[2025-01-10] MEDS: Aspirin 81 MG CHEW PO (08:29)
[2025-01-10] MEDS: Normal Saline Flush 10 ML SYR IVP (08:30)
[2025-01-10] MEDS: Donepezil 5 MG TAB 10 MG PO (08:30)
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
[2025-01-10] MEDS: Acetaminophen 325 MG TAB 650 MG PO (11:07)
[2025-01-10] MEDS: Budesonide/Formoterol 160/4.5 6 GM 60 PUFF INH IH (11:30)
[2025-01-10] MEDS: Tiotropium Bromide-Respimat 10 PUFF INH 2 PUFF IH (11:31)
--- NOTE | 2025-01-10 11:35 | PT.INIE ---
PT Notes Visit Reasons: Anxiety, Lumbar Radiculopathy Physical Therapy Inpatient Initial Evaluation Date: 01/10/2025 Referring Doctor: Dr. Pina PT Orders: PT CONSULT: PT evaluation and treatment Precautions: Fall risk, standard Patient Profile/Admitting Diagnosis: Patient is a 84-year-old male presented to the ED on with right lower extremity weakness akathisia and agitation. Patient with history of lumbar radiculopathy for which she was started on buprenorphine 5 days prior to presentation noted increased anxiety at home. Patient was scheduled for pain clinic on 01/09/25 for treatment of lumbar radiculopathy pain however patient was in the emergency room therefore did not attend appointment. Patient admitted to [facility] unit for medication management and further medical monitoring. PMHX: Lumbar pain (Acute) Confusion (Acute) Lumbar radiculopathy, right (Acute) Delirium, drug-induced (Acute) Akathisia (Acute) Drug interaction (Acute) Altered mental status (Acute) Back pain (Acute) Right leg weakness (Acute) Parkinson disease (Chronic) Cognitive impairment (Chronic) Coronary artery disease (Chronic) Followed by [facility] CardiologyHistory of stroke (Chronic) Asthma-COPD overlap syndrome (Chronic) Peripheral vascular disease (Chronic) Critical stenosis in right femoral artery Abdominal aortic aneurysm (Chronic)3.8 cm infrarenal AAA. 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) Hyperlipidemia (Chronic) Normocytic normochromic anemia (Chronic) Degenerative joint disease (DJD) of lumbar spine (Chronic) Lumbar radiculopathy (Acute) Degenerative joint disease of right hip (Acute) Trochanteric bursitis, right hip (Acute) Rotator cuff arthropathy of both shoulders (Chronic) Major depressive disorder (Chronic) Insomnia (Chronic) GERD (gastroesophageal reflux disease) (Chronic) Dysphagia (Chronic) Sensorineural hearing loss, bilateral (Chronic) Cigarette smoker (Chronic) Frequent falls (Chronic) Onychomycosis (Chronic) Nail dystrophy (Chronic) Plantar wart, right foot (Acute) Medical History Essential hypertension CVA (cerebral vascular accident) (~1979) Surgical History Hx of umbilical hernia repair Status post right knee replacement Social History/Home Situation: Resides at home with his . 5 steps to enter with left rail 13 steps with left rail to his bedroom. reports she has placed a twin bed on the first floor for him to use if he is unable to do the stairs. Patient ambulates within the home with cane or crutches. Equipment Owned/DME: Crutches, cane, tub seat Subjective: Patient states he knows he can walk but is willing to demonstrate so he can go home. At end of session patient agreeable to utilizing FWW for improved stability in anticipation of discharge to home Objective: [] General Observation: Male presented supine in bed visiting Mental Status: Alert, cooperative, able to follow instructions, agreeable to participate in functional assessment. Pain: Denied pain in his back ROM: Assessment occurred during functional tasks B Upper Extremity: WFL shoulder elevation approx 90 degrees, bicep deformity Right Lower Extremity: WFL Left Lower Extremity: WFL Strength: [] BUE: Able to move all joints against gravity cogwheeling noted left elbow R Lower Extremity: Hip 3-/5, knee 3/5 ankle 3/5 LLE: Hip 3/5, knee 3/5 ankle 3/5 Sensation: intact Bed Mobility/Transfers: [] Supine to sit Supervision Sit to stand SBA Stand to sit SBA Bed to chair SBA with FWW cue for safe approach to surface Gait: Ambulated with FWW 100 feet with standby assist reciprocal pattern Stairs: 3 4 steps? and 2 6 steps x 2 trials with rail SBA with continuous cues for sequencing step to pattern Balance: [] Static Sitting: Normal Dynamic Sitting: Good Static Standing: Good with upper extremity support Dynamic Standing: Fair with upper extremity support Special Tests: [] Mobility Limitations Standardized Measure [] [facility] AM-PAC 6 clicks Basic Mobility Inpatient Short Form: [] Raw Score: 21 CMS Score: 28.97% Informed Consent/Education: Patient instructed in purpose of PT consult. Assessment: Patient is an 84-year-old male who presents with clinical signs and symptoms consistent with current/admitting diagnoses that have resulted to mobility limitations, gait instability, generalized weakness, and impairment of motor control as demonstrated by the following impairment level findings: 1. Decreased strength/ motor coordination to BUE BLE major muscle groups 2. Impaired standing balance 3. Limitation of joint range of motion in left knee 4. Pain in low back right sided 5. Impaired functional activity tolerance Impairments are contributing to the following functional limitations: 1. Inability to safely ambulate without assistive device 2. Increase completion time for mobility ADL performance 3. Increased fall risk 4. Difficulty performing stairs without assistive 5. AM-PAC score Despite deficits outlined above patient demonstrates ability to return home with his with use of FWW to improve stability reduce risk for falls within home environment. Patient and are agreeable to use of FWW. Patient's stated she would need to rearrange some furniture to allow for access. Patient is assessed as a moderate complexity based on the following: History: 84-year-old male with impairment level findings, functional limitations, and past medical history as indicated above Examination: Demonstrable impairment in strength, balance, and mobility level with underlying impairments and functional limitations as documented above Presentation: Evolving Decision Making: Moderate Goals: N/A. PT evaluation and 1-2 treatment sessions only for functional mobility training using recommended AD and for HEP instruction. Plan of Care/Treatment Plan: N/A. PT evaluation and 1-2 treatment session only for functional mobility training using recommended AD and for HEP instruction. DISCHARGE RECOMMENDATIONS: Home with HHPT TREATMENT CODE/TIME: [id number] Thank you for the opportunity to participate in the care of this patient. Anai Darling PT [facility]
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
[2025-01-10] MEDS: Carbidopa 25/Levodopa 100 TAB PO (14:06)
[2025-01-10] MEDS: MORPHine IR 15 MG TAB PO (14:34)
--- NOTE | 2025-01-10 16:27 | PDOC.CMDIS ---
Date of service: 01/10/25 Time of Service: 16:34 LACE Index Scoring Tool Questions: Length of Stay (in days): 1 Was the patient admitted via the E.D.?: Yes Comorbidities: Cerebrovascular Disease, PVD, Diabetes w/o Complication, Chronic Pulmonary Disease and Liver or Renal Disease E.D. Visits: 8 Answers: Total Score: 13 Risk of Readmission: High Risk Care Management Discharge Plan Reason for Hospitalization: back pain Discharge Plan: Lei will be discharged home with new home health services for PT. He will follow up with his community providers and plan of care and transport with family. CM was able to make him an appointment at the Pain clinic for tomorrow 01/11/25 at 1:30 pm. Patient/Family Education Needs: Review of discharge instructions, limitations, follow up plan and discuss Ask me Three Services Needed at Discharge: Home Health Care Services SDOH Health Related Social Needs: Health related social needs lonely/isolated
== END 2025-01-10 14:58 | disposition home health service (06) ==
LOC: ER 08:24 → EDHOLD 11:33 → MS 18:58 → EDHOLD 01-10 04:17 → MS 01-10 04:17
PROVIDERS: Emergency Medicine Emergency Medical Services; Nurse Practitioner Acute Care; Admitting Provider Hospitalist; Emergency Provider Emergency Medicine; PCP Nurse Practitioner Family; Responsible Provider Family Medicine; Visit Provider Hospitalist
DX: R41.0 Disorientation, unspecified (principal); T40.495A Adverse effect of other synthetic narcotics, initial encounter; G25.71 Drug induced akathisia; N18.4 Chronic kidney disease, stage 4 (severe); H90.3 Sensorineural hearing loss, bilateral; M54.50 Low back pain, unspecified; Z79.4 Long term (current) use of insulin; M79.604 Pain in right leg; M54.16 Radiculopathy, lumbar region; G20.C Parkinsonism, unspecified; Z86.73 Personal history of transient ischemic attack (TIA), and cerebral infarction without residual deficits; J44.9 Chronic obstructive pulmonary disease, unspecified; I25.10 Atherosclerotic heart disease of native coronary artery without angina pectoris; I71.43 Infrarenal abdominal aortic aneurysm, without rupture; E11.40 Type 2 diabetes mellitus with diabetic neuropathy, unspecified; E11.22 Type 2 diabetes mellitus with diabetic chronic kidney disease; D64.9 Anemia, unspecified; E78.5 Hyperlipidemia, unspecified; F32.9 Major depressive disorder, single episode, unspecified; G47.00 Insomnia, unspecified; K21.9 Gastro-esophageal reflux disease without esophagitis; F17.210 Nicotine dependence, cigarettes, uncomplicated; R29.6 Repeated falls; B35.1 Tinea unguium; Z96.651 Presence of right artificial knee joint; Z79.84 Long term (current) use of oral hypoglycemic drugs; Z79.899 Other long term (current) drug therapy
CPT/HCPCS: 00123; 36415; 80048; 80053; 93005; 94640; 96365; 96366; 96372; 96374; 96375; 97162; 99285; J3490; 83735; 84484; 85025; 93010; 94664; 99222; 99239; G0378; J0131; J1200; J1630; J1815; J1885; J2270; J3475

== ENCOUNTER 2025-01-11 13:14 | Outpatient (CLI) | payer MEDICARE, SELFPAY ==
[2025-01-11 13:24] VITALS: BP 161/69; PULSE 78; RESP 20; TEMP 37; O2SAT 95
--- NOTE | 2025-01-11 13:51 | PDOC.PAIN ---
Date of service: 01/11/25 Time of Service: 14:14 Pain Managment Procedure Note Procedure Note Procedure Note: Lumbar Transforaminal Epidural Steroid Injection ? Location: RIGHT L5 ? Pre-procedure Diagnosis: M54.17-Radiculopathy, lumbosacral region M54.16 Radiculopathy, lumbar region ? Post-procedure Diagnosis:? The same as above ? Sedation:? none ? Estimated blood loss:? less than 2 cc ? Surgeon:? Mando Gaona MD COMMENT: L5-S1: Severe loss of disc height. Circumferentially projecting osteophytes. Facet degenerative changes. Bilateral neural foraminal narrowing, greater on the right. ? Procedure Detail:?? The procedure and potential risks were explained to the patient and informed written consent was obtained. The patient was escorted to the procedure room and placed in the prone position. Pillows were utilized for proper positioning and comfort. Time out was performed in the procedure room with nursing staff confirming the patient's identity, procedure to be performed, allergies, and any blood thinning or anti-platelet medications. The patient's lower back was prepped with ChloraPrep and draped in a sterile fashion. Sterile gloves were used, a face mask was worn, and new single dose vials of all medications were used with the top being swabbed with alcohol and given time to dry prior to withdrawal of medication. A right-sided oblique fluoroscopic view was obtained, with visualization of level. Lidocaine 1% was used to anesthetize the skin. The tip of a 22-gauge, Quincke needle was advanced toward the 6 o'clock position of the superior pedicle at the target level.? It was advanced just under the pedicle to the neural foramen L5-S1. Correct needle placement was confirmed through review of the fluoroscopy. Next, following negative aspiration, 1cc's of Omnipaque 240 contrast was injected under live fluoroscopy which showed good flow throughout the epidural space and no evidence of vascular flow or flow into adjacent compartments. Next, following negative aspiration, 40mg Depo-Medrol and 0.5ml of 0.5% bupivacaine was injected. The needle was gently removed.? ? The patient tolerated the procedure well and was discharged home with instructions.? Permanent images saved and recorded. Plan:? Follow up prn PAIN: PRE PROCEDURE 01/20 POST PROCEDURE 05/23 COMMENT: Consider repeating or consider interlaminar L5-S1 or caudal approach if transforaminal not effective Coding Conscious Sedation used for procedure: No CPT Codes: Transforaminal Lumbar/Sacral (includes fluoro) - 76043 ([id number] ~G) Additional Codes: Date of Service () Diagnoses: M54.17-Radiculopathy, lumbosacral region M54.16 Radiculopathy, lumbar region
[2025-01-11 13:53] VITALS: PULSE 85; O2SAT 96
[2025-01-11 14:00] VITALS: PULSE 79; O2SAT 95
--- NOTE | 2025-01-11 14:14 | DI.RAD_ITS ---
Exam(s) XR PAIN CLINIC LUMBAR SP 2V EXAM: XR PAIN CLINIC LUMBAR SP 2V CLINICAL HISTORY: Dx: Lumbar Radiculopathy. TECHNIQUE: Fluoroscopy was provided for the referring physician for guidance with performing pain clinic injection procedure. COMPARISON: No exams were available for comparison FINDINGS: Please see procedure note for details. Fluoro time: 35.2 seconds RADIATION DOSE DELIVERED: Ka,r=9.3 mGy
[2025-01-11] MEDS: Bupivacaine 0.5% Pres-Free 10 ML VIAL IJ (14:20)
[2025-01-11] MEDS: Omnipaque 240 MG/ML 50 ML BTL IJ (14:20)
[2025-01-11] MEDS: methylPREDNISolone ACETATE 40 MG/ML VIAL IJ (14:21)
== END 2025-01-11 13:15 | disposition home or self-care (01) ==
LOC: PC 13:14
PROVIDERS: PCP Nurse Practitioner Family; Visit Provider Anesthesiology Pain Medicine
DX: M54.50 Low back pain, unspecified (principal); M54.17 Radiculopathy, lumbosacral region; M54.16 Radiculopathy, lumbar region
CPT/HCPCS: 64483; 72100; J0665; J1010; Q9967

== ENCOUNTER 2025-03-27 13:33 | Outpatient (CLI) | payer MEDICARE, SELFPAY ==
[2025-03-27 13:39] LABS: Uric Acid 5.8 mg/dL (3.7-9.2)
[2025-03-27 13:42] LABS: Hemoglobin A1C 5.9 % (<5.7)
[2025-03-27 13:43] LABS: Vitamin B12 327 pg/mL (211-911); Vitamin D 25 Total 24 ng/mL (30-100)
[2025-03-27 13:44] LABS: Folate 14.1 ng/mL (>5.38)
== END 2025-03-27 13:34 | disposition home or self-care (01) ==
LOC: LBO 13:33
PROVIDERS: PCP Nurse Practitioner Family; Visit Provider Nurse Practitioner Family
DX: N18.4 Chronic kidney disease, stage 4 (severe) (principal); E11.40 Type 2 diabetes mellitus with diabetic neuropathy, unspecified; G20.A1 Parkinson's disease without dyskinesia, without mention of fluctuations; R29.898 Other symptoms and signs involving the musculoskeletal system
CPT/HCPCS: 36415; 82306; 82043; 82570; 82607; 82746; 83036; 83970; 84100; 84550

== ENCOUNTER 2025-03-29 18:01 | Outpatient (REF) | payer MEDICARE, SELFPAY ==
[2025-03-29 17:54] LABS: Microalb ug/mg Crea 67.8 ug/mg Cr
== END 2025-03-29 18:02 | disposition home or self-care (01) ==
LOC: LBN 18:01
PROVIDERS: PCP Nurse Practitioner Family; Visit Provider Nurse Practitioner Family
DX: N18.4 Chronic kidney disease, stage 4 (severe) (principal)
CPT/HCPCS: 82043; 82570

== ENCOUNTER 2025-04-12 02:41 | Outpatient (CLI) | payer MEDICARE, SELFPAY ==
[2025-04-12 11:36] LABS: Abs Immature Grans 0.05 10^3/uL (0.0-0.06); HCT 35.9 % (40.0-50.0); HGB 11.3 g/dL (13.5-17.5); Immature Grans % 0.6 %; MCH 30.1 pg (27.0-33.0); MCHC 31.5 % (32.0-36.0); MCV 96 fL (80-95); MPV 10.2 fL (8.0-11.0); Platelet Count 217 10^3/uL (130-400); RBC 3.75 10^6/uL (4.36-5.78); RDW 12.5 % (11.8-14.1); RDW-SD 44.0 fL; WBC 8.07 10^3/uL (4.4-10.8)
[2025-04-12 12:40] LABS: Anion Gap 9 mmol/L (3-11); BUN 27 mg/dL (9-23); CO2 25.0 mmol/L (20.0-31.0); Calcium 8.8 mg/dL (8.3-10.6); Chloride 105 mmol/L (98-107); Glucose 139 mg/dL (74-106); Potassium 4.5 mmol/L (3.5-5.1); Sodium 139 mmol/L (136-145)
[2025-04-14 07:20] LABS: Lab Add On Test DONE
[2025-04-14 07:40] LABS: Cholesterol 102 mg/dL (<200); HDL Cholesterol 34 mg/dL (>or=40)
== END 2025-04-12 02:42 | disposition home or self-care (01) ==
LOC: LBO 02:41
PROVIDERS: PCP Nurse Practitioner Family; Visit Provider Physician Assistant
DX: R60.9 Edema, unspecified (principal); R05.9 Cough, unspecified; I50.9 Heart failure, unspecified; Z86.73 Personal history of transient ischemic attack (TIA), and cerebral infarction without residual deficits
CPT/HCPCS: 36415; 80048; 80061; 83880; 85025

== ENCOUNTER → 2025-04-12 13:24 | Outpatient (CLI) | payer MEDICARE, SELFPAY ==
--- NOTE | 2025-04-12 11:42 | DI.RAD_ITS ---
Exam(s) XR CHEST 2V PA LATERAL EXAM: XR CHEST 2V PA LATERAL CLINICAL HISTORY: cough, bilateral arm edema,r05.9 TECHNIQUE: 2D digital imaging was performed. Two views. COMPARISON: CT CT CHEST/ABD/PEL WO from 12/29/2024 FINDINGS: HEART: Normal size. Aorta: Not dilated. PULMONARY VASCULATURE: Normal. MEDIASTINUM: Unremarkable. LUNGS: Emphysematous changes greater in the upper lobes. No superimposed infiltrate or pulmonary edema. PLEURAL SPACE: No pleural effusion or pneumothorax. BONE:Unremarkable for age. SOFT TISSUES: Unremarkable. IMPRESSION: Severe emphysematous changes. No acute abnormality. DATA REPOSITORY: RADIATION DOSE DELIVERED:
== END ==
LOC: DI 13:24
PROVIDERS: PCP Nurse Practitioner Family; Visit Provider Physician Assistant
DX: R05.9 Cough, unspecified (principal)
CPT/HCPCS: 71046